=== PATIENT | male | born 1955 | race Caucasian/White ===

== ENCOUNTER 2017-02-07 20:54 | Emergency (ER) | payer MEDICARE, OTHER ==
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
[2017-02-07 21:32] LABS: Hematocrit 38.9 % (42.0-52.0); Hemoglobin 13.5 gm/dL (13.5-18.0); Mean Cell Volume 98.5 fl (78-100); Mean Corpuscular Hemoglobin 34.2 pg (27-31); Mean Corpuscular Hgb Conc 34.7 g/dl (32-36); Neutrophil # 5.1 K/mm3 (1.3-6.0); Neutrophil % 71.2 % (42-75.0); Platelet Count 63 K/mm3 (150-450); Red Blood Count 3.95 M/mm3 (4.7-6.0); Red Cell Distribution Width 13.8 % (11.5-14.0); White Blood Count 7.2 K/mm3 (4.0-10.5)
[2017-02-07 21:46] LABS: Albumin * 2.5 gm/dl (3.4-5.0); Anion Gap 14.6 mmol/L (6.8-13.8); BUN/Creatinine Ratio 9.7 (9.0-21.6); Bilirubin, Total 5.4 mg/dL (0.0-1.1); Ca. Corrected For Albumin 8.9 mg/dL (8.4-10.2); Carbon Dioxide 20.7 mmol/L (24-32.6); Potassium 3.3 mmol/L (3.4-4.6); Total Protein 6.6 gm/dL (6.2-8.2)
[2017-02-07 21:48] VITALS: BP 137/74
[2017-02-07 22:31] LABS: Urine Bilirubin Negative (NEGATIVE); Urine Ketone Negative (NEGATIVE); Urine Nitrite Negative (NEGATIVE); Urine Protein Negative (NEGATIVE); Urine Specific Gravity 1.015 SP.GR. (1.005-1.030); Urine Urobilinogen Normal (NORMAL)
[2017-02-07 22:39] LABS: Urine Appearance Clear; Urine Blood 5 /ul (NEGATIVE); Urine Color Yellow; Urine RBC 0-5 /hpf (0-5); Urine WBC 0-5 /hpf (0-5)
[2017-02-07 22:40] LABS: Urine Bacteria 1+; Urine Hyaline Cast 0-5 /LPF
== END 2017-02-07 23:25 | disposition home or self-care (01) ==
LOC: ER 20:54
DX: T14.8 Other injury of unspecified body region (principal); W18.39XA Other fall on same level, initial encounter; Y93.89 Activity, other specified; Y92.007 Garden or yard of unspecified non-institutional (private) residence as the place of occurrence of the external cause
CPT/HCPCS: 36415; 70450; 73562; 80053; 81001; 85025; 99284; G0481

== ENCOUNTER 2017-06-05 09:39 | Emergency (ER) | payer MEDICARE ==
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
[2017-06-05] MEDS ORDERED: DIATRIZOATE MEGLUMINE, SODIUM 30 ML BTL PO ONE (11:12)
[2017-06-05] MEDS ORDERED: DIATRIZOATE MEGLUMINE, SODIUM 30 ML BTL ONE (11:24)
[2017-06-05 11:30] LABS: Hematocrit 33.6 % (42.0-52.0); Hemoglobin 11.5 gm/dL (13.5-18.0); Mean Cell Volume 97.7 fl (78-100); Mean Corpuscular Hemoglobin 33.4 pg (27-31); Mean Corpuscular Hgb Conc 34.2 g/dl (32-36); Mean Platelet Volume 11.3 fl (6.0-9.5); Neutrophil # 5.3 K/mm3 (1.3-6.0); Neutrophil % 66.4 % (42-75.0); Platelet Count 83 K/mm3 (150-450); Red Blood Count 3.44 M/mm3 (4.7-6.0); Red Cell Distribution Width 16.7 % (11.5-14.0)
[2017-06-05 11:45] LABS: Albumin * 2.4 gm/dl (3.4-5.0); Anion Gap 12.9 mmol/L (6.8-13.8); BUN/Creatinine Ratio 10.3 (9.0-21.6); Bilirubin, Total 6.2 mg/dL (0.0-1.1); Ca. Corrected For Albumin 9.5 mg/dL (8.4-10.2); Calcium * 8.5 mg/dL (7.9-10.9); Carbon Dioxide 26.8 mmol/L (24-32.6); Potassium 3.7 mmol/L (3.4-4.6); Total Protein 6.9 gm/dL (6.2-8.2)
[2017-06-05] MEDS ORDERED: NORMAL SALINE 1,000 ML IV ONE (12:26)
[2017-06-05 12:41] LABS: Prothrombin Time (Patient) 12.7 Seconds (9.0-11.0)
[2017-06-05 12:42] LABS: INR 1.27 INR (0.90-1.10)
[2017-06-05] MEDS ORDERED: LACTULOSE 10 G/15 ML BTL PO ONE (14:15)
[2017-06-05 15:13] LABS: Urine Bilirubin 1 mg/dl (NEGATIVE); Urine Ketone 5 mg/dL (NEGATIVE); Urine Nitrite Negative (NEGATIVE); Urine Protein Negative (NEGATIVE); Urine Urobilinogen >=8.0 EU/dl (NORMAL); Urine pH 6.5 pH (5.0-7.0)
[2017-06-05 15:26] LABS: Urine Appearance Clear; Urine Bacteria None Seen; Urine Blood 5 /ul (NEGATIVE); Urine Color Amber; Urine RBC None Seen /hpf (0-5); Urine WBC None Seen /hpf (0-5)
[2017-06-05 18:15] VITALS: BP 158/91
== END 2017-06-05 16:10 | disposition short-term general hospital (02) ==
LOC: ER 09:39
DX: S22.42XA Multiple fractures of ribs, left side, initial encounter for closed fracture (principal); R18.8 Other ascites; E86.0 Dehydration; R60.1 Generalized edema; G04.90 Encephalitis and encephalomyelitis, unspecified; K74.60 Unspecified cirrhosis of liver; K72.00 Acute and subacute hepatic failure without coma; W01.0XXA Fall on same level from slipping, tripping and stumbling without subsequent striking against object, initial encounter; Y92.000 Kitchen of unspecified non-institutional (private) residence as the place of occurrence of the external cause; E11.9 Type 2 diabetes mellitus without complications

== ENCOUNTER 2017-12-22 20:06 | Observation (INO) ==
[2017-12-22] MEDS ORDERED: NORMAL SALINE 1,000 ML IV ONE (20:35)
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
[2017-12-22 20:43] LABS: Hematocrit 33.3 % (42.0-52.0); Mean Cell Volume 97.1 fl (78-100); Mean Corpuscular Hemoglobin 32.1 pg (27-31); Mean Platelet Volume 10.6 fl (6.0-9.5); Neutrophil # 2.4 K/mm3 (1.3-6.0); Neutrophil % 64.6 % (42-75.0); Platelet Count 45 K/mm3 (150-450); Red Blood Count 3.43 M/mm3 (4.7-6.0); Red Cell Distribution Width 16.4 % (11.5-14.0); White Blood Count 3.7 K/mm3 (4.0-10.5)
[2017-12-22 21:02] LABS: ALT 58 U/L (19-67); AST 101 U/L (0-48); Albumin * 2.1 gm/dl (3.4-5.0); Alkaline Phosphatase * 227 U/L (50-170); Anion Gap 16.4 mmol/L (6.8-13.8); BUN/Creatinine Ratio 14.8 (9.0-21.6); Bilirubin, Total 5.4 mg/dL (0.0-1.1); Blood Urea Nitrogen 19 mg/dL (6-23); CK Total * 168 U/L (0-259); Ca. Corrected For Albumin 8.4 mg/dL (8.4-10.2); Calcium * 7.2 mg/dL (7.9-10.9); Carbon Dioxide 18.5 mmol/L (24-32.6); Chloride 103 mmol/L (97-106); Glucose * 116 mg/dL (70-110); Potassium 3.9 mmol/L (3.4-4.6); Sodium 134 mmol/L (132-142); Total Protein 5.5 gm/dL (6.2-8.2)
[2017-12-22 21:03] LABS: Troponin I 0.066 ng/ml (0.00-0.10)
[2017-12-22 21:40] LABS: Urine Bilirubin Negative (NEGATIVE); Urine Blood 25 /ul (NEGATIVE); Urine Ketone Negative (NEGATIVE); Urine Nitrite Negative (NEGATIVE); Urine Protein 15 mg/dL (NEGATIVE); Urine Specific Gravity 1.025 SP.GR. (1.005-1.030); Urine Urobilinogen Normal (NORMAL)
[2017-12-22 21:52] LABS: Cocaine Ur Negative (NEGATIVE); Urine Barbiturate Negative (NEGATIVE); Urine Benzodiazepines Negative (NEGATIVE); Urine Opiates Negative (NEGATIVE); Urine PCP Negative (NEGATIVE); Urine THC Negative (NEGATIVE)
[2017-12-22 21:53] LABS: Urine Appearance Clear (CLEAR); Urine Bacteria TRACE; Urine Color Dark Yellow; Urine Hyaline Cast 0-5 /LPF; Urine WBC None Seen /hpf (0-5)
--- NOTE | 2017-12-22 22:43 | HP ---
Chief Complaint - Chief Complaint Date of Service: 12/22/17 Time of Service: 22:41 Chief Complaint: Shortness of breath, laceration and unsteady gait. History of Present Illness: 62 years old male was out most of the day fishing from his boat. He drank only on Gatorade while out on the boat. The temperature was 91 degrees. When he stood up to get off the boat he felt very tired/weak, dizzy and cramping. He lost his balance and fell causing a laceration to the left leg. Associated s/s shortness of breath, nausea, lightheadedness and sweating. he denies chest pain , palpitation or vomiting. PMH significant for of ascites , liver cirrhosis secondary to nonalcoholic steatohepatitis, SBP, hypertension, neuropathy, diabetes II and sleep apnea. In ER pt was noted to be in Afib rate control, EKG to be obtained to confirm converted. Chest x-ray demonstrates fluid within the right fissure. Right lower lobe dizziness may represent effusion or infiltrate.Plan of care discussed with pt he verbalized understanding and agrees. - Patient's Past Medical History Patient History - Medical: Diabetes Type 2, GERD, Liver Disease, Obesity Patient History - Cardiac/Respiratory: Hypertension, Hyperlipidemia, Peripheral Vascular Disease, CPAP/BiPAP Home Use, Sleep Apnea Patient History - Cancer: No Hx of Cancer Patient History - Surgical Procedures: No surgical history Patient History - Other: None - Family History Father Family History - Medical: Family History - Cardiac/Respiratory: No pertinent hx Family History - Cancer: No pertinent family hx Mother Family History - Medical: , No pertinent hx Family History - Cardiac/Respiratory: No pertinent hx Family History - Cancer: No pertinent family hx - Social History Living Situations: home Abuse History: No History of abuse Psych History: No pertinent hx Smoking Status: Never smoker Alcohol Use: none Drug Use: none - Immunizations Immunizations Up to Date: Yes Hx Pneumococcal Vaccination: Yes History of Influenza Vaccine: Yes Review Of Systems (GEN) - Review of Systems Generalized/Overall Review: Present: Weakness EENTM: Present: No Symptoms Reported Respiratory: Present: Shortness of Breath Cardiac: Present: No Symptoms Reported Abdominal: Present: No Symptoms Reported Genitourinary: Present: No Symptoms Reported Musculoskeletal: Present: No Symptoms Reported Neurological: Present: Headache, Weakness Skin: Present: Bruising Endocrine: Present: No Symptoms Reported Immunizations: IMMUNIZATION HX Immunizations Up to Date Yes History of Influenza Vaccine Yes Hx Pneumococcal Vaccination Yes Allergies/Adverse Reactions: Allergies Allergy/AdvReac Type Severity Reaction Status Date / Time No Known Allergies Allergy Verified 08/27/17 08:16 Home Medications: HOME MEDICATIONS Atorvastatin Calcium [Lipitor] 40 mg PO HS 06/05/17 [Last Taken Unknown] Omeprazole 20 mg PO DAILY 06/05/17 [Last Taken Unknown] Ciprofloxacin HCl 500 mg PO DAILY 08/26/17 [Last Taken Unknown] Furosemide [Lasix] 80 mg PO DAILY 08/26/17 [Last Taken Unknown] Spironolactone 100 mg PO DAILY 08/26/17 [Last Taken Unknown] Lisinopril 20 mg PO DAILY #30 tablet 08/30/17 [Last Taken Unknown] Lactulose [Enulose] 30 ml PO TID 12/22/17 [Last Taken Unknown] Exam - Exam Vital Signs: Vital Signs - Last Taken Temp 37.5 C 12/22/17 22:25 Pulse 95 12/22/17 22:25 Resp 17 12/22/17 22:25 BP 116/79 12/22/17 22:25 Pulse Ox 100 12/22/17 22:25 Constitutional: Present: Alert, Oriented x3, Cooperative, No distress, Middle aged, Morbidly obese ENT Exam: Present: hearing grossly normal Eye Exam: bilateral eye: normal inspection Neck: Present: non-tender, full range of motion Back Exam: Present: normal inspection, no CVA tenderness Breasts: Present: Exam deferred Respiratory: Present: chest non-tender, lungs clear, normal breath sounds, no respiratory distress, no accessory muscle use Cardiovascular/Chest: Present: normal peripheral pulses, no chest tenderness, irregularly irregular, edema Peripheral Pulses: dorsalis-pedis (R): 1+, dorsalis-pedis (L): 1+ Abdomen: Present: Normal bowel sounds, nontender, no rebound tenderness, obese, negative Jacobs sign /Rectal: Present: Exam deferred Extremity: Present: normal range of motion, non-tender, normal inspection, no calf tenderness, lower extremity edema, swelling Skin Exam: Present: normal color, warm/dry, no cyanosis Neurologic: Present: normal mood/affect, oriented x 3 Appearance: Present: appropriate appearance Eye contact: Present: cooperative, good eye contact Thoughts: Present: normal thought pattern Diagnostic Studies: Laboratory Results WBC 3.7 K/mm3 (4.0-10.5) L 12/22/17 20:40 RBC 3.43 M/mm3 (4.7-6.0) L 12/22/17 20:40 Hgb 11.0 gm/dL (13.5-18.0) L 12/22/17 20:40 Hct 33.3 % (42.0-52.0) L 12/22/17 20:40 MCV 97.1 fl (78-100) 12/22/17 20:40 MCH 32.1 pg (27-31) H 12/22/17 20:40 MCHC 33.0 g/dl (32-36) 12/22/17 20:40 RDW 16.4 % (11.5-14.0) H 12/22/17 20:40 Plt Count 45 K/mm3 (150-450) L 12/22/17 20:40 MPV 10.6 fl (6.0-9.5) H 12/22/17 20:40 Immature Gran % (Auto) 1.90 % (0.001-0.429) H 12/22/17 20:40 Immature Gran # (Auto) 0.07 K/mm3 (0.000-0.0310) H 12/22/17 20:40 Neutrophils % 64.6 % (42-75.0) 12/22/17 20:40 Lymphocytes % 9.3 % (20-51) L 12/22/17 20:40 Monocytes % 23.2 % (0.0-9) H 12/22/17 20:40 Eosinophils % 0.5 % (0.0-3.0) 12/22/17 20:40 Basophils % 0.5 % (0.0-1.0) 12/22/17 20:40 Nucleated RBC % 0.0 k/mm3 (0-1) 12/22/17 20:40 Neutrophils # 2.4 K/mm3 (1.3-6.0) 12/22/17 20:40 Lymphocytes # 0.34 k/mm3 (1.5-3.5) L 12/22/17 20:40 Monocytes # 0.9 k/mm3 (0.0-1.0) 12/22/17 20:40 Eosinophils # 0.0 k/mm3 (0.0-0.7) 12/22/17 20:40 Absolute Basophils 0.0 k/mm3 (0.0-0.1) 12/22/17 20:40 Sodium 134 mmol/L (132-142) 12/22/17 20:40 Plasma Sodium 134 mmol/L (130-142) 12/22/17 20:40 Potassium 3.9 mmol/L (3.4-4.6) 12/22/17 20:40 Chloride 103 mmol/L (97-106) 12/22/17 20:40 Carbon Dioxide 18.5 mmol/L (24-32.6) L 12/22/17 20:40 Anion Gap 16.4 mmol/L (6.8-13.8) H 12/22/17 20:40 BUN 19 mg/dL (6-23) 12/22/17 20:40 Creatinine 1.28 mg/dL (0.4-1.4) 12/22/17 20:40 Est GFR (Non-Af Amer) 60 mL/min (60-130) 12/22/17 20:40 BUN/Creatinine Ratio 14.8 (9.0-21.6) 12/22/17 20:40 Random Glucose 116 mg/dL (70-110) H 12/22/17 20:40 Lactic Acid, Venous 4.0 mmol/L (0.4-1.9) H* 12/22/17 20:40 Calcium 7.2 mg/dL (7.9-10.9) L 12/22/17 20:40 Calcium Adj for Albumin 8.4 mg/dL (8.4-10.2) 12/22/17 20:40 Total Bilirubin 5.4 mg/dL (0.0-1.1) H 12/22/17 20:40 AST 101 U/L (0-48) H 12/22/17 20:40 ALT 58 U/L (19-67) 12/22/17 20:40 Alkaline Phosphatase 227 U/L (50-170) H 12/22/17 20:40 Ammonia 29.0 mcmol/L (11-35) 12/22/17 20:40 Creatine Kinase 168 U/L (0-259) 12/22/17 20:40 Troponin I 0.066 ng/ml (0.00-0.10) 12/22/17 20:40 Total Protein 5.5 gm/dL (6.2-8.2) L 12/22/17 20:40 Albumin 2.1 gm/dl (3.4-5.0) L 12/22/17 20:40 Urine Color Dark yellow 12/22/17 21:35 Urine Appearance Clear (CLEAR) 12/22/17 21:35 Urine pH 6.0 pH (5.0-7.0) 12/22/17 21:35 Ur Specific [place] 1.025 SP.GR. (1.005-1.030) 12/22/17 21:35 Urine Protein 15 mg/dL (NEGATIVE) H 12/22/17 21:35 Urine Glucose (UA) Negative mg/dL (NEGATIVE) 12/22/17 21:35 Urine Ketones Negative mg/dL (NEGATIVE) 12/22/17 21:35 Urine Blood 25 /ul (NEGATIVE) H 12/22/17 21:35 Urine Nitrate Negative (NEGATIVE) 12/22/17 21:35 Urine Bilirubin Negative mg/dl (NEGATIVE) 12/22/17 21:35 Prot Sulfosalicylic Acd Negative mg/dL (0) 12/22/17 21:35 Urine Urobilinogen Normal EU/dl (NORMAL) 12/22/17 21:35 Ur Leukocyte Esterase Negative /ul (NEGATIVE) 12/22/17 21:35 Urine RBC 5-10 /hpf (0-5) H 12/22/17 21:35 Urine WBC None seen /hpf (0-5) 12/22/17 21:35 Ur Epithelial Cells None seen /hpf (0-5) 12/22/17 21:35 Urine Bacteria Trace (NONE) 12/22/17 21:35 Hyaline Casts 0-5 /LPF (NONE) H 12/22/17 21:35 Urine Culture Comments No culture indicated 12/22/17 21:35 Urine Opiates Screen Negative (NEGATIVE) 12/22/17 21:35 Barbiturate Screen Negative (NEGATIVE) 12/22/17 21:35 Ur Phencyclidine Scrn Negative (NEGATIVE) 12/22/17 21:35 Urine Amphetamine Negative (NEGATIVE) 12/22/17 21:35 U Benzodiazepines Scrn Negative (NEGATIVE) 12/22/17 21:35 Urine Cocaine Screen Negative (NEGATIVE) 12/22/17 21:35 Urine Marijuana (THC) Negative (NEGATIVE) 12/22/17 21:35 Ethyl Alcohol Less than 3.0 mg/dL (0.0-10.0) 12/22/17 20:40 Chest x-ray demonstrates fluid within the right fissure. Right lower lobe dizziness may represent effusion or infiltrate. Favor effusion in this patient with severe cirrhosis Assessment/Plan - Assessment/Plan (1) Heat exhaustion Assessment: On adm temp 38.1, actic 4--->2.0 Pt was out most of the day in 91 degree temp He drank only one bottle Gatorade Monitor CMP and encourage oral hydration Keep pt cool Problem: Acute (2) Liver failure Problem: Chronic (3) Cirrhosis of liver Problem: Chronic (4) Hypertension Assessment: stable Problem: Chronic Qualifiers: Hypertension type: essential hypertension Qualified Code(s): I10 - Essential (primary) hypertension (5) Diabetes Assessment: Accu-check and Low dose Sliding scale insulin consistent carb diet Problem: Acute Qualifiers: Diabetes mellitus type: type 2 (6) Sleep apnea Assessment: Continue with cpap at home settings Problem: Chronic (7) Afib Assessment: seen on tele, HR control Will get EKG to confirm pt had converted to NSR. Problem: Acute
[2017-12-22] MEDS: NORMAL SALINE 1,000 ML IV PRN (23:32)
[2017-12-23 04:55] LABS: Albumin * 1.8 gm/dl (3.4-5.0); Anion Gap 11.9 mmol/L (6.8-13.8); BUN/Creatinine Ratio 13.6 (9.0-21.6); Bilirubin, Total 4.6 mg/dL (0.0-1.1); Ca. Corrected For Albumin 8.8 mg/dL (8.4-10.2); Calcium * 7.4 mg/dL (7.9-10.9); Carbon Dioxide 20.8 mmol/L (24-32.6); Potassium 3.7 mmol/L (3.4-4.6); Total Protein 5.2 gm/dL (6.2-8.2)
--- NOTE | 2017-12-23 06:44 | PN ---
Subjective - Date and Time Seen Date: 12/23/17 Time: 06:33 Subjective Narrative: patient seen in bed no acute distress, he report pelvic pain is intermittent with movement but he no longer have the spams or sharp leg cramps. Objective - Review of Systems Generalized/Overall Review: Reports: No Symptoms Reported EENTM: Reports: No Symptoms Reported Respiratory: Reports: No Symptoms Reported Cardiac: Reports: No Symptoms Reported Abdominal: Reports: No Symptoms Reported Genitourinary Symptoms: Reports: No Symptoms Reported Musculoskeletal Complaints: Reports: Joint Pain Neurological: Reports: Weakness Skin: Reports: Bruising - Vitals Vitals: Last Vital Signs Temp 37.2 C 12/23/17 05:00 Pulse 78 12/23/17 05:54 Resp 18 12/23/17 05:54 BP 108/89 12/23/17 05:00 Pulse Ox 100 12/23/17 05:54 - Abnormal Lab Findings Abnormal Lab Findings: Abnormal Lab Results 12/22/17 12/23/17 12/23/17 Range/Units 23:20 04:37 04:37 Chloride 108 H (97-106) mmol/L Carbon Dioxide 20.8 L (24-32.6) mmol/L Lactic Acid, Venous 2.1 H* (0.4-1.9) mmol/L Calcium 7.4 L (7.9-10.9) mg/dL Total Bilirubin 4.6 H (0.0-1.1) mg/dL AST 93 H (0-48) U/L Alkaline Phosphatase 206 H (50-170) U/L Ammonia 59.0 H (11-35) mcmol/L Total Protein 5.2 L (6.2-8.2) gm/dL Albumin 1.8 L (3.4-5.0) gm/dl - Exam Constitutional: Present: Alert, Oriented x3, Cooperative, No distress ENT Exam: Present: hearing grossly normal Neck: Present: non-tender, full range of motion, supple, normal inspection Respiratory: Present: chest non-tender, lungs clear, normal breath sounds, no respiratory distress Cardiovascular/Chest: Present: normal peripheral pulses, no chest tenderness, no gallop Abdomen: Present: Normal bowel sounds, soft, nontender, nondistended, no rebound tenderness /Rectal: Present: Exam deferred Extremity: Present: non-tender, normal inspection, no pedal edema, no calf tenderness, other - limited range of motion secondary to right pelvic fracture Assessment/Plan Plan Narrative: 1. Heat exhaustion- resolved On adm temp 38.1, Lactic 4--->2.0--->1.7 Pt was out most of the day in 91 degree temp He drank only one bottle Gatorade Monitor CMP and encourage oral hydration Keep pt cool Problem: Acute (2) Liver failure Chronic (3) Cirrhosis of liver Chronic 4. Hypertension May resume home medications when, na+ better improve 5.Diabetes Accu-check and Low dose Sliding scale insulin consistent carb diet (6) Sleep apnea Continue with cpap at home settings (7) Afib seen on tele, HR control Repeated EKG confirmed converted to NSR. 8. Thrombocytopenia On adm Plt 45 which is around the pt baseline - Problems/Diagnosis (1) Heat exhaustion Problem: Acute (2) Liver failure Problem: Chronic (3) Cirrhosis of liver Problem: Chronic (4) Hypertension Problem: Chronic Qualifiers: Hypertension type: essential hypertension Qualified Code(s): I10 - Essential (primary) hypertension (5) Diabetes Problem: Acute Qualifiers: Diabetes mellitus type: type 2 (6) Sleep apnea Problem: Chronic (7) Afib Problem: Acute (8) Thrombocytopenia Problem: Chronic
[2017-12-23] MEDS ORDERED: PANTOPRAZOLE SODIUM 20 MG TABLET.DR PO SCH (07:00)
[2017-12-23] MEDS: NORMAL SALINE 1,000 ML IV PRN (07:41)
[2017-12-23] MEDS ORDERED: LISINOPRIL 20 MG TABLET PO SCH (09:00)
[2017-12-23] MEDS ORDERED: SPIRONOLACTONE 100 MG TABLET PO SCH (09:00)
[2017-12-23] MEDS ORDERED: FUROSEMIDE 80 MG TABLET PO SCH (09:00)
[2017-12-23] MEDS: LACTULOSE 10 G/15 ML BTL PO SCH ×2 (09:18→13:52)
[2017-12-23] MEDS ORDERED: POTASSIUM CHLORIDE 20 MEQ TABLET.SA PO ONE (10:00)
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
[2017-12-23 14:54] VITALS: BP 109/62
[2017-12-23] MEDS ORDERED: ROSUVASTATIN CALCIUM 20 MG TABLET PO SCH (21:00)
[2017-12-23] MEDS ORDERED: ATORVASTATIN CALCIUM 40 MG TABLET PO SCH (21:00)
== END 2017-12-23 15:20 | disposition home or self-care (01) ==
LOC: ER 20:06 → MS 21:45
PROVIDERS: ADMIT Nurse Practitioner; ATTEND Internal Medicine
DX: K72.10 Chronic hepatic failure without coma; E11.9 Type 2 diabetes mellitus without complications; V94.0XXA Hitting object or bottom of body of water due to fall from watercraft, initial encounter; G47.33 Obstructive sleep apnea (adult) (pediatric); S81.811A Laceration without foreign body, right lower leg, initial encounter; T67.5XXA Heat exhaustion, unspecified, initial encounter; I10 Essential (primary) hypertension; I48.91 Unspecified atrial fibrillation; I73.9 Peripheral vascular disease, unspecified; D69.6 Thrombocytopenia, unspecified; K74.69 Other cirrhosis of liver; K76.0 Fatty (change of) liver, not elsewhere classified; E66.01 Morbid (severe) obesity due to excess calories; Z68.41 Body mass index [BMI] 40.0-44.9, adult
CPT/HCPCS: 12002; 36415; 71010; 71045; 80053; 80307; 80320; 81001; 82140; 82550; 83605; 84484; 85025; 87040; 93005; 94660; 94760; 96360; 96361; 99285; G0378; G0479; G0481

== ENCOUNTER 2018-01-01 08:18 | Inpatient (IN) ==
[2018-01-01] MEDS ORDERED: oxyCODONE HCL 5 MG TABLET PO ONE (09:04)
[2018-01-01] MEDS ORDERED: oxyCODONE HCL 5 MG TABLET ONE ×2 (09:19→09:42)
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
[2018-01-01 10:06] LABS: Hemoglobin 11.2 gm/dL (13.5-18.0); Mean Corpuscular Hemoglobin 31.6 pg (27-31); Mean Corpuscular Hgb Conc 32.9 g/dl (32-36); Mean Platelet Volume 10.8 fl (8-11.3); Platelet Count 56 K/mm3 (150-450); Red Blood Count 3.54 M/mm3 (4.7-6.0)
[2018-01-01 10:07] LABS: Total Cells Counted 100
[2018-01-01 10:29] LABS: Albumin * 2.1 gm/dl (3.4-5.0); Anion Gap 12.8 mmol/L (6.8-13.8); BUN/Creatinine Ratio 12.3 (9.0-21.6); Ca. Corrected For Albumin 9.3 mg/dL (8.4-10.2); Calcium * 8.1 mg/dL (7.9-10.9); Carbon Dioxide 22.8 mmol/L (24-32.6); Potassium 4.6 mmol/L (3.4-4.6); Total Protein 5.6 gm/dL (6.2-8.2)
[2018-01-01 10:30] LABS: Troponin I 0.327 ng/ml (0.00-0.10)
[2018-01-01 10:42] LABS: Band 4 % (0-2.0); Immature Granulocyte 3 (0-1); Lymphocyte 1 % (20-51); Neutrophil 92 % (42-75)
[2018-01-01 10:47] LABS: Platelet Estimate Decreased (NORMAL); Toxic Granulation 1+
[2018-01-01] MEDS: NORMAL SALINE 1,000 ML IV PRN ×2 (11:03→17:13)
[2018-01-01 11:48] LABS: Urine Bilirubin 1 mg/dl (NEGATIVE); Urine Ketone Negative (NEGATIVE); Urine Protein 15 mg/dL (NEGATIVE); Urine Specific Gravity >=1.030 SP.GR. (1.005-1.030); Urine Urobilinogen Normal (NORMAL)
[2018-01-01] MEDS ORDERED: AZITHROMYCIN 500 MG in DEXTROSE 5 % IN WATER 250 ML IV ONE ×2 (11:51)
[2018-01-01 11:52] LABS: Urine Appearance Slightly Cloudy (CLEAR); Urine Bacteria 2+; Urine Blood 10 /ul (NEGATIVE); Urine Color Dark Yellow; Urine Fine Granular Cast 0-5 /LPF; Urine Nitrite Positive (NEGATIVE); Urine RBC 0-5 /hpf (0-5); Urine WBC 0-5 /hpf (0-5)
--- NOTE | 2018-01-01 12:56 | HP ---
Chief Complaint - Chief Complaint Date of Service: 01/01/18 Time of Service: 12:56 Chief Complaint: fall History of Present Illness: Douglas Camilo, is a 62-year-old white male, with previous medical history of hypertension, hyperlipidemia, liver cirrhosis with ascites and portal hypertension, who was admitted on 01/01/2018 for a fall. On the night before admission, the patient stood up from his bed and felt weakness from his knees down to his legs. He fell down on his buttocks and he was not able to stand up. He laidd on the floor until he was able to crawl and get to the telephone this morning. He called his daughter who called EMS. In transit , they started him on some oxygenation because he was complaining of shortness of breath. In the emergency room workup included x-ray of his lower back which showed no evidence of compression fracture. His chest x-ray showed right atelectasis with pleural effusion but cannot rule out pneumonia. His white blood cell count was elevated and the CK was elevated in the 3900. His creatinine was up to 1.7 from 1.1 week ago. He was then started on IV antibiotics for possible pneumonia and started on IV fluids for his rhabdomyolysis. His BNP was elevated at 1490 and his troponin was slightly elevated at 0.3. Her EKG showed no ST-T wave changes but did show some ectopic atrial rhythm. - Patient's Past Medical History Patient History - Medical: Diabetes Type 2, GERD, Liver Disease, Obesity Patient History - Cardiac/Respiratory: Hypertension, Hyperlipidemia, Peripheral Vascular Disease, CPAP/BiPAP Home Use, Sleep Apnea Patient History - Cancer: No Hx of Cancer Patient History - Surgical Procedures: No surgical history Patient History - Other: None - Family History Father Family History - Medical: Family History - Cardiac/Respiratory: No pertinent hx Family History - Cancer: No pertinent family hx Mother Family History - Medical: , No pertinent hx Family History - Cardiac/Respiratory: No pertinent hx Family History - Cancer: No pertinent family hx - Social History Living Situations: alone Abuse History: No History of abuse Psych History: No pertinent hx Smoking Status: Former smoker Have you smoked in the past 12 months: No Do you dip or chew tobacco: Yes Alcohol Use: sober - non since 2014 Drug Use: none - Immunizations Immunizations Up to Date: Yes Hx Pneumococcal Vaccination: Yes History of Influenza Vaccine: Yes Review Of Systems (GEN) - Review of Systems Generalized/Overall Review: Present: Weakness Respiratory: Present: Shortness of Breath. Absent: Cough Cardiac: Present: Edema. Absent: Chest Pain, Palpitations Abdominal: Absent: Nausea, Vomiting Genitourinary: Absent: Urgency, Frequency Allergies/Adverse Reactions: Allergies Allergy/AdvReac Type Severity Reaction Status Date / Time No Known Allergies Allergy Verified 01/01/18 08:27 Home Medications: HOME MEDICATIONS Furosemide [Lasix] 80 mg PO DAILY 08/26/17 [Last Taken Unknown] Spironolactone 100 mg PO DAILY 08/26/17 [Last Taken Unknown] Lactulose [Enulose] 30 ml PO TID 12/22/17 [Last Taken Unknown] Atorvastatin Calcium [Lipitor] 40 mg PO DAILY #0.1 tablet 12/23/17 [Last Taken Unknown] Lisinopril 20 mg PO HS #0.1 tablet 12/23/17 [Last Taken Unknown] Omeprazole 20 mg PO DAILY #0.1 tablet. 12/23/17 [Last Taken Unknown] Ciprofloxacin HCl [Cipro] 500 mg PO DAILY 01/01/18 [Last Taken Unknown] Rifaximin [Xifaxan] 550 mg PO BID 01/01/18 [Last Taken Unknown] Zinc 50 mg PO DAILY 01/01/18 [Last Taken Unknown] Exam - Exam Vital Signs: Vital Signs - Last Taken Temp 36.8 C 01/01/18 12:15 Pulse 95 01/01/18 12:15 Resp 25 H 01/01/18 12:15 BP 87/39 01/01/18 12:15 Pulse Ox 100 01/01/18 12:15 Constitutional: Present: Alert, Oriented x3, Cooperative ENT Exam: Present: hearing grossly normal Eye Exam: bilateral eye: normal inspection, PERRL, EOMI, scleral icterus Neck: Present: supple Respiratory: Present: decreased breath sounds, No rales, No wheezing Cardiovascular/Chest: Present: no JVD, no murmur, irregularly irregular Abdomen: Present: Normal bowel sounds, soft, nontender, distended Extremity: Present: leg pain Diagnostic Studies: Laboratory Results WBC 25.0 K/mm3 (4.0-10.5) H 01/01/18 10:03 RBC 3.54 M/mm3 (4.7-6.0) L 01/01/18 10:03 Hgb 11.2 gm/dL (13.5-18.0) L 01/01/18 10:03 Hct 34.0 % (42.0-52.0) L 01/01/18 10:03 MCV 96.0 fl (78-100) 01/01/18 10:03 MCH 31.6 pg (27-31) H 01/01/18 10:03 MCHC 32.9 g/dl (32-36) 01/01/18 10:03 RDW 17.0 % (11.5-14.0) H 01/01/18 10:03 Plt Count 56 K/mm3 (150-450) L 01/01/18 10:03 MPV 10.8 fl (8-11.3) 01/01/18 10:03 Neutrophils % (Manual) 92 % (42-75) H 01/01/18 10:03 Band Neuts % (Manual) 4 % (0-2.0) H 01/01/18 10:03 Lymphocytes % (Manual) 1 % (20-51) L 01/01/18 10:03 Immature Granulocytes 3 (0-1) H 01/01/18 10:03 Neutrophils # (Manual) 23.0 K/mm3 (1.3-6.0) H 01/01/18 10:03 Lymphocytes # (Manual) 0.3 k/mm3 (1.5-3.5) L 01/01/18 10:03 Toxic Granulation 1+ 01/01/18 10:03 Toxic Vacuolation 1+ 01/01/18 10:03 Platelet Estimate Decreased (NORMAL) L 01/01/18 10:03 pCO2 26.1 mmHg (35.0-48.0) L 01/01/18 11:22 pO2 71.0 mmHg (83.0-108.0) L 01/01/18 11:22 HCO3 18.5 mmol/L (21.0-28.0) L 01/01/18 11:22 Total CO2 19.3 mmol/L (19.0-24.0) 01/01/18 11:22 Base Excess -3.9 mmol/L (-2.0-3.0) L 01/01/18 11:22 ABG pH 7.47 (7.35-7.45) H 01/01/18 11:22 ABG O2 Sat (Measured) 95.5 % (94.0-98.0) 01/01/18 11:22 Sodium 137 mmol/L (132-142) 01/01/18 10:03 Plasma Sodium 137 mmol/L (130-142) 01/01/18 10:03 Potassium 4.6 mmol/L (3.4-4.6) D 01/01/18 10:03 Chloride 106 mmol/L (97-106) 01/01/18 10:03 Carbon Dioxide 22.8 mmol/L (24-32.6) L 01/01/18 10:03 Anion Gap 12.8 mmol/L (6.8-13.8) 01/01/18 10:03 BUN 22 mg/dL (6-23) D 01/01/18 10:03 Creatinine 1.79 mg/dL (0.4-1.4) H D 01/01/18 10:03 Est GFR (Non-Af Amer) 41 mL/min (60-130) L D 01/01/18 10:03 BUN/Creatinine Ratio 12.3 (9.0-21.6) 01/01/18 10:03 Random Glucose 103 mg/dL (70-110) 01/01/18 10:03 Lactic Acid, Venous 4.6 mmol/L (0.4-1.9) H* 01/01/18 10:00 Calcium 8.1 mg/dL (7.9-10.9) 01/01/18 10:03 Calcium Adj for Albumin 9.3 mg/dL (8.4-10.2) 01/01/18 10:03 Total Bilirubin 6.0 mg/dL (0.0-1.1) H 01/01/18 10:03 AST 189 U/L (0-48) H 01/01/18 10:03 ALT 64 U/L (19-67) 01/01/18 10:03 Alkaline Phosphatase 209 U/L (50-170) H 01/01/18 10:03 Ammonia 26.0 mcmol/L (11-35) 01/01/18 10:03 Creatine Kinase 3762 U/L (0-259) H 01/01/18 10:03 Troponin I 0.327 ng/ml (0.00-0.10) H* 01/01/18 10:03 B-Natriuretic Peptide 1490 pg/mL (5-175) H 01/01/18 10:03 Total Protein 5.6 gm/dL (6.2-8.2) L 01/01/18 10:03 Albumin 2.1 gm/dl (3.4-5.0) L 01/01/18 10:03 Urine Color Dark yellow 01/01/18 11:22 Urine Appearance Slightly cloudy (CLEAR) 01/01/18 11:22 Urine pH 5.0 pH (5.0-7.0) 01/01/18 11:22 Ur Specific Lambert >=1.030 SP.GR. (1.005-1.030) 01/01/18 11:22 Urine Protein 15 mg/dL (NEGATIVE) H 01/01/18 11:22 Urine Glucose (UA) 100 mg/dL (NEGATIVE) H 01/01/18 11:22 Urine Ketones Negative mg/dL (NEGATIVE) 01/01/18 11:22 Urine Blood 10 /ul (NEGATIVE) H 01/01/18 11:22 Urine Nitrate Positive (NEGATIVE) H 01/01/18 11:22 Urine Bilirubin 1 mg/dl (NEGATIVE) H 01/01/18 11:22 Urine Ictotest Negative (NEGATIVE) 01/01/18 11:22 Prot Sulfosalicylic Acd 1+ mg/dL (0) 01/01/18 11:22 Urine Urobilinogen Normal EU/dl (NORMAL) 01/01/18 11:22 Ur Leukocyte Esterase Negative /ul (NEGATIVE) 01/01/18 11:22 Urine RBC 0-5 /hpf (0-5) 01/01/18 11:22 Urine WBC 0-5 /hpf (0-5) 01/01/18 11:22 Ur Epithelial Cells Trace /hpf (0-5) 01/01/18 11:22 Urine Bacteria 2+ (NONE) H 01/01/18 11:22 Fine Granular Casts 0-5 /LPF (NONE) H 01/01/18 11:22 Urine Culture Comments Culture to follow 01/01/18 11:22 Assessment/Plan - Assessment/Plan (1) Hypotension Assessment: sepsis vs 3rd spacing. Sepsis reassessment done. Problem: Acute (2) Congestive heart failure Assessment: elevated BNP. Echo showed normal EF, positive diastolic dysfunction. Problem: Acute Qualifiers: Heart failure type: unspecified Heart failure chronicity: acute Qualified Code(s): I50.9 - Heart failure, unspecified (3) Pneumonia Assessment: on IV Rocephin and Azithromycin. Problem: Acute Qualifiers: Pneumonia type: due to unspecified organism Laterality: right Lung location: lower lobe of lung Qualified Code(s): J18.1 - Lobar pneumonia, unspecified organism (4) Rhabdomyolysis Assessment: IVF was increased to 200 ml /hour due to low BP/sepsis and rhabdomyolysis. patient became more SOB. IVF decreased to 75 ml/hour. Lasix deferred due to BP 90/49. Problem: Acute Qualifiers: Rhabdomyolysis type: traumatic Encounter type: initial encounter Qualified Code(s): T79.6XXA - Traumatic ischemia of muscle, initial encounter (5) Cirrhosis of liver Assessment: with ascites and portal hypertension. will defer from doing abdominal tap as he does not have tense ascities and his abdomen is not tender and soft. his elevated WBC is likely due to chest findings-possible pneumonia. Problem: Chronic Qualifiers: Hepatic cirrhosis type: unspecified hepatic cirrhosis Ascites presence: unspecified Qualified Code(s): K74.60 - Unspecified cirrhosis of liver (6) JD on CPAP Problem: Chronic (7) Acute kidney injury Assessment: continue with IVF Problem: Acute (8) Elevated CK Assessment: will monitor. Echo- cannot rule regional wall motion abdnormality due to poor windows from SOB. Problem: Resolved
[2018-01-01] MEDS: ALBUTEROL SULFATE 2.5 MG/0.5 ML VIAL.NEB IH PRN ×2 (14:16→21:34)
[2018-01-01] MEDS ORDERED: NORMAL SALINE 200 ML IV ONE (16:47)
[2018-01-01] MEDS ORDERED: FUROSEMIDE 10 MG/ML VIAL IV ONE (16:48)
[2018-01-01 17:47] LABS: Anion Gap 13.2 mmol/L (6.8-13.8); BUN/Creatinine Ratio 13.8 (9.0-21.6); Calcium * 7.8 mg/dL (7.9-10.9); Carbon Dioxide 23.4 mmol/L (24-32.6); Estimated Creat Clear 41.3; Magnesium 1.5 mg/dL (1.2-2.8); Phosphorus 3.6 mg/dL (2.2-4.2); Potassium 4.6 mmol/L (3.4-4.6); Uric Acid 4.5 mg/dL (2.6-7.2)
[2018-01-01] MEDS: LACTULOSE 10 G/15 ML BTL PO SCH ×2 (18:26→18:30)
[2018-01-01] MEDS ORDERED: NON-FORMULARY 1 DOSE DOSE (Rifaximin [Xifaxan] 550 MG) PO SCH (21:00)
--- NOTE | 2018-01-01 23:39 | PN ---
Progess Note - Interim Date: 01/01/18 Time: 23:29 Narrative: 01/01/18 23:29 patient seen having audible wheezing, he denies shortness of breath. Lungs coarse on auscultation, will decreased IVF now and monitor out-pt. During shift he continue to be hypotensive,pt have had only 200ml urine out and legs appear to be more edemous. Monitor CMP and BNP in the morning, due to the rhabdo the kidney function is already been affected.He needs IVF for the rhabdo, but giving fluid he gets shortness of breath. Its a possibility cre may increased further affecting his kidneys with the decreased IVF. Will transfer [facility]. he potential could benefit from dialysis, concern for hepato-renal syndrome.
[2018-01-02] MEDS: NORMAL SALINE 1,000 ML IV PRN (02:46)
--- NOTE | 2018-01-02 03:19 | DS ---
Transfer Discharge Summary - Diagnosis(s)/Problems (1) Hepatorenal syndrome Problem: Acute (2) Congestive heart failure Problem: Acute (3) Hypotension Problem: Acute (4) Pneumonia Problem: Acute (5) Rhabdomyolysis Problem: Acute (6) Sepsis Problem: Acute (7) Cirrhosis of liver Problem: Chronic (8) Ascites Problem: Acute (9) Diabetes Problem: Chronic (10) Acute kidney injury Problem: Acute (11) Elevated CK Problem: Resolved (12) Diastolic CHF Problem: Acute - Course Description of Stay: Date of admission 01/01/2018 Date of transfer 01/02/2018 Transfer summary Mr. Soto a 62yrs old white male admitted to the hospital s/p fall while at home. He remains on the floor until the next day, where he crawled to the phone and called his daughter who inturn called EMS.PMH of hypertension, hyperlipidemia, liver cirrhosis with ascites and portal hypertension, While enroute to the hospital, he reported shortness of breath and was given oxygen.At [facility] ER x-ray of his lower back which showed no evidence of compression fracture. His chest x-ray showed right atelectasis with pleural effusion but cannot rule out pneumonia. His white blood cell count was elevated and the CK was elevated in the 3900. His creatinine was up to 1.7 from 1.1 week ago. He was then started on IV antibiotics for possible pneumonia and started on IV fluids for his rhabdomyolysis. His BNP was elevated at 1490 and his troponin was slightly elevated at 0.3. His EKG showed no ST-T wave changes but did show some ectopic atrial rhythm. During this adm he was given IVF for sepsis/hypotension and rhabdo. Pt continued to report shortness of breath and was getting more congested, IVF was decreased and while in the presence of been hypotensive Lasix was deferred. He had Only 200ml urine out put and was showing increased edema to extremities. Despite the IVF, cre continue to rise at 1.95. Spoke with Dr venegas and Dr last of the [place].We were concern for hepato-renal syndrome, the pt and daughter agreeable with transfer. Procedures Performed: none - Results and Findings Results and Findings: Laboratory Results - last 24 hr 01/01/18 01/01/18 01/01/18 13:14 16:15 16:15 Sodium 137 Plasma Sodium 138 Potassium 4.6 Chloride 105 Carbon Dioxide 23.4 L Anion Gap 13.2 BUN 27 H Creatinine 1.95 H Est GFR (Non-Af Amer) 37 L BUN/Creatinine Ratio 13.8 Random Glucose 148 H D Lactic Acid, Venous 3.3 H* Uric Acid 4.5 Calcium 7.8 L Phosphorus 3.6 Magnesium 1.5 Creatine Kinase 3212 H Troponin I 0.234 H* - Medications Medications: Active Medications Albuterol Sulfate (Albuterol Sulfate 2.5 Mg/0.5ml) 2.5 mg IH Q4H PRN PRN Reason: Shortness Of Breath Stop: 01/31/18 14:05 Last Admin: 01/01/18 21:34 Dose: 2.5 mg Sodium Chloride (Sodium Chloride 0.9%) 1,000 mls @ 80 mls/hr IV .[id number] PRN PRN Reason: HYDRATION Last Admin: 01/02/18 02:46 Dose: 80 mls/hr Lactulose (Enulose) 20 g PO TID HARINDER Stop: 01/31/18 13:01 Last Admin: 01/01/18 18:30 Dose: Not Given Non-Formulary Medication (Rifaximin [Xifaxan]) 550 mg PO BID HARINDER Stop: 01/31/18 21:01 Last Admin: 01/01/18 20:25 Dose: Not Given Discontinued Medications Furosemide (Lasix) 40 mg IV ONCE ONE Stop: 01/01/18 16:49 Last Admin: 01/01/18 17:11 Dose: 40 mg Ceftriaxone Sodium 1,000 mg/ (Dextrose/Water) 100 mls @ 200 mls/hr IV ONCE ONE PRN Reason: Protocol Stop: 01/01/18 11:41 Last Infusion: 01/01/18 11:57 Dose: Infused Azithromycin 500 mg/ Dextrose/ (Water) 250 mls @ 250 mls/hr IV ONCE ONE PRN Reason: Protocol Stop: 01/01/18 12:50 Last Infusion: 01/01/18 15:04 Dose: Infused Sodium Chloride (Sodium Chloride 0.9%) 200 mls @ 999 mls/hr IV .Q13M ONE Stop: 01/01/18 16:59 Last Infusion: 01/01/18 17:04 Dose: Infused Oxycodone HCl (Oxycodone) 5 mg PO ONCE ONE Stop: 01/01/18 09:05 Last Admin: 01/01/18 09:44 Dose: 5 mg - Disposition Disposition: Short Term Hospital Inpatient Condition: Stable Discharge Date: 01/02/18 Discharge Time: 02:50
[2018-01-02 03:36] VITALS: BP 98/42
[2018-01-02] MEDS ORDERED: ROSUVASTATIN CALCIUM 20 MG TABLET PO SCH (09:00)
[2018-01-02] MEDS ORDERED: CIPROFLOXACIN HCL 500 MG TABLET PO SCH (09:00)
--- NOTE | 2018-01-02 09:41 | ECHO ---
This report is available in the EMR
[2018-01-02] MEDS ORDERED: AZITHROMYCIN 500 MG in DEXTROSE 5 % IN WATER 250 ML IV SCH ×2 (11:52)
== END 2018-01-02 03:30 | disposition short-term general hospital (02) | DRG 871 ==
LOC: ER 08:18 → MS 11:28
PROVIDERS: ADMIT Internal Medicine; ATTEND Internal Medicine
DX: N17.9 Acute kidney failure, unspecified; R18.8 Other ascites; K76.7 Hepatorenal syndrome; T79.6XXA Traumatic ischemia of muscle, initial encounter; E78.5 Hyperlipidemia, unspecified; E11.9 Type 2 diabetes mellitus without complications; I50.31 Acute diastolic (congestive) heart failure; I10 Essential (primary) hypertension; W18.30XA Fall on same level, unspecified, initial encounter; K74.60 Unspecified cirrhosis of liver; J18.1 Lobar pneumonia, unspecified organism; A41.9 Sepsis, unspecified organism; R74.8 Abnormal levels of other serum enzymes
CPT/HCPCS: 36415; 36600; 71010; 71045; 72110; 80048; 80053; 81001; 82140; 82550; 82803; 83519; 83605; 83735; 83880; 84100; 84484; 84550; 85025; 87040; 87086; 93005; 93306; 94640; 94660; 94664

== ENCOUNTER 2018-04-20 11:07 | Inpatient (IN) ==
[2018-04-20] MEDS ORDERED: NORMAL SALINE 500 ML IV ONE (11:17)
--- NOTE | 2018-04-20 11:23 | ERNOTE ---
Back Pain ER HPI Presenting Symptoms: hx chronic back pain Time Seen by Provider: 04/20/18 11:12 Source: patient, family Exam Limitations: no limitations Immunizations: IMMUNIZATION HX Immunizations Up to Date Yes History of Influenza Vaccine Yes Hx Pneumococcal Vaccination Yes Allergies/Adverse Reactions: Allergies No Known Allergies Allergy (Verified 04/20/18 11:16) Home Medications: HOME MEDICATIONS Spironolactone 100 mg PO DAILY 08/26/17 [Last Taken Unknown] Lactulose [Enulose] 30 ml PO TID 12/22/17 [Last Taken Unknown] Rifaximin [Xifaxan] 550 mg PO BID 01/01/18 [Last Taken Unknown] Zinc 50 mg PO DAILY 01/01/18 [Last Taken Unknown] atorvastatin 40 mg tablet 40 mg PO DAILY #30 tab 03/12/18 [Last Taken Unknown] ciprofloxacin 500 mg tablet 500 mg PO DAILY #30 tab 03/12/18 [Last Taken Unknown ] omeprazole 20 mg capsule,delayed release 20 mg PO DAILY #30 cap 03/14/18 [Last Taken Unknown] lisinopril 20 mg tablet 20 mg PO DAILY #30 tab 04/07/18 [Last Taken Unknown] linagliptin 5 mg tablet 5 mg PO DAILY 04/08/18 [Last Taken Unknown] blood sugar diagnostic strips See Dose Instructions .ROUTE .MEDSUPPLY #100 ea [Last Taken Unknown] lancets See Dose Instructions .ROUTE .MEDSUPPLY #100 ea 04/09/18 [Last Taken Unknown] baclofen 10 mg tablet 10 mg PO TID 30 Days #90 tab 04/10/18 [Last Taken Unknown] duloxetine 30 mg capsule,delayed release 30 mg PO DAILY #90 cap 04/10/18 [Last Taken Unknown] Furosemide [Lasix] 40 mg PO DAILY 04/20/18 [Last Taken Unknown] Narrative: Patient has a long-standing history of bilateral lower extremity edema and falling. Family came over to visit him today and they're worried about him and called the ambulance so he can be evaluated and see if anything else needed to be done for him. Timing: Reports: constant Quality/Severity: Reports: mild Location of pain: Reports: lower back - this is chronic over Activities at Onset: Reports: none Recent Injury?: Reports: no Possible Precipitating Factor: Reports: none - generalized weakness Modifying Factors - (Improves): Reports: nothing Modifying Factors - (Worsens): Reports: nothing Prior Treament: Reports: recently seen, treated by physician Review of Systems - Review of Systems Constitutional: Present: See HPI EYE: Present: no symptoms reported ENT: Present: no symptoms reported Respiratory: Present: no symptoms reported Cardiology: Present: edema - chronic lower extremity edema Gastrointestinal/Abdominal: Present: no symptoms reported Genitourinary: Present: no symptoms reported Musculoskeletal: Present: no symptoms reported Skin: Present: no symptoms reported Neurological: Present: no symptoms reported Endocrine: Present: no symptoms reported Hematologic/Lymphatic: Present: no symptoms reported Psych: Present: no symptoms reported Medical History (Last Reviewed 04/08/18 @ 15:03 by Lc Crowell) Tremor (Chronic) Onset Date: ~05/30/17 Shoulder dislocation (Chronic) Onset Date: ~07/17/14 Osteoarthritis (Chronic) Onset Date: Unknown Neuropathy (Chronic) Onset Date: ~05/30/17 JD on CPAP (Chronic) Onset Date: Unknown Rib fracture (Chronic) Onset Date: Unknown Morbid obesity (Chronic) Onset Date: Unknown Hyperlipidemia (Chronic) Onset Date: Unknown Hypertension (Chronic) Onset Date: Unknown GERD (gastroesophageal reflux disease) (Chronic) Onset Date: ~01/24/15 Depression (Chronic) Onset Date: Unknown Colonic polyp (Chronic) Onset Date: Unknown Cirrhosis of liver (Chronic) Onset Date: Unknown Bacterial pneumonia (Chronic) Onset Date: Unknown Surgical History: Surgical History (Last Reviewed 04/08/18 @ 15:03 by Lc Crowell) H/O repair of rotator cuff (Resolved) Onset Date: ~10/25/14 Social History: Preferred Language Samoan Abuse History No History of abuse Psych History No pertinent hx Physical Exam - Physical Exam General Appearance: Present: wd/wn, alert, moderate distress Head Exam: Present: normal inspection, no evidence of injury Eye Exam: Normal inspection: bilateral, PERRL: bilateral Ears, Nose, Throat: Present: normal ENT inspection, H, normal pharynx Neck: Present: normal inspection, nontender Respiratory: Present: no respiratory distress, normal breath sounds, no accessory muscle use, chest nontender, lungs clear Cardiovascular/Chest: Present: regular rate, rhythm, no murmur, normal peripheral pulses Gastrointestinal/Abdominal: Present: normal bowel sounds, nontender, nondistended, soft, no organomegaly Rectal Exam: Present: deferred Back Exam: Present: normal inspection, normal range of motion Extremity Exam: Present: non-tender, normal range of motion, pedal edema Neurological Exam: Present: alert, oriented, normal mood/affect Skin Exam: Present: warm/dry, jaundice, other - early decubitus ulcer on the left buttock Lymphatic Exam: Present: no adenopathy ED Progress - Results and Orders Patient's Lab Results:: I have reviewed the patient's lab results. - Vital Signs Patient's Vital Signs:: I have reviewed the patient's vital signs. Vital Signs: Vital Signs 04/20/18 11:12 Temperature 36.8 C Pulse Rate 90 Respiratory Rate 24 H Blood Pressure 100/52 O2 Sat by Pulse Oximetry 100 - X-Ray X-Ray #1 X-Ray: pelvis Interpretation: Reviewed by me X-Ray #2 X-Ray: lumbosacral Interpretation: Reviewed by me X-Ray #3 X-Ray: chest Interpretation: Reviewed by me - Progress/Reassessment Chief Complaint: Back Pain Plan - Plan Plan: Patient appears to be nearing the place where were going to have to consider end -of-life planning. He is in liver failure, currently has lactic acidosis and was hypotensive and is evolving in decubitus ulcers now. I discussed the case with the family and they believe that he is a DNR and they're waiting to talk to the daughter who is currently out of state to verify that. Patient will be admitted to an observation bed and prison placement will be sought in the morning and possible hospice, although that will be determined at a later date likely. Departure Clinical Impression: Lactic acidosis Liver failure Qualifiers: Liver failure chronicity: subacute Hepatic coma status: without hepatic coma Qualified Code(s): K72.00 - Acute and subacute hepatic failure without coma Ascites Qualifiers: Ascites type: other type Qualified Code(s): R18.8 - Other ascites Decubitus ulcer Qualifiers: Pressure injury location: buttock Pressure injury stage: stage 1 Laterality: left Qualified Code(s): L89.321 - Pressure ulcer of left buttock, stage 1 - Departure Disposition: Still a patient Condition: Fair
[2018-04-20 11:35] LABS: Hematocrit 27.3 % (42.0-52.0); Hemoglobin 9.1 gm/dL (13.5-18.0); Mean Cell Volume 95.5 fl (78-100); Mean Corpuscular Hemoglobin 31.8 pg (27-31); Mean Corpuscular Hgb Conc 33.3 g/dl (32-36); Mean Platelet Volume 10.7 fl (8-11.3); Neutrophil # 13.6 K/mm3 (1.3-6.0); Red Blood Count 2.86 M/mm3 (4.7-6.0); Red Cell Distribution Width 17.2 % (11.5-14.0); White Blood Count 15.4 K/mm3 (4.0-10.5)
[2018-04-20 11:41] LABS: Platelet Count 51 K/mm3 (150-450)
[2018-04-20 11:43] LABS: Prothrombin Time (Patient) 15.7 Seconds (9.0-11.0)
[2018-04-20 11:49] LABS: INR 1.56 INR (0.90-1.10); Partial Thrombolplastin Time 36.4 Seconds (24-32)
[2018-04-20 11:59] LABS: Albumin * 2.1 gm/dl (3.4-5.0); Anion Gap 9.4 mmol/L (6.8-13.8); BUN/Creatinine Ratio 20.4 (9.0-21.6); Bilirubin, Total 7.6 mg/dL (0.0-1.1); Ca. Corrected For Albumin 9.2 mg/dL (8.4-10.2); Carbon Dioxide 28.1 mmol/L (24-32.6); Magnesium 1.7 mg/dL (1.2-2.8); Potassium 4.5 mmol/L (3.4-4.6)
[2018-04-20] MEDS ORDERED: NORMAL SALINE 1,000 ML IV ONE (12:31)
[2018-04-20 12:55] LABS: Urine Appearance Clear (CLEAR); Urine Color Amber; Urine Ketone Negative (NEGATIVE); Urine Protein 15 mg/dL (NEGATIVE); Urine pH 5.5 pH (5.0-7.0)
[2018-04-20 12:56] LABS: Urine Bilirubin 3 mg/dl (NEGATIVE); Urine Blood 150 /ul (NEGATIVE); Urine Nitrite Negative (NEGATIVE); Urine Urobilinogen Normal (NORMAL)
[2018-04-20 12:57] LABS: Urine RBC 0-5 /hpf (0-5); Urine WBC 0-5 /hpf (0-5)
[2018-04-20 13:01] LABS: Urine Bacteria TRACE; Urine Hyaline Cast 0-5 /LPF
[2018-04-20] MEDS ORDERED: CEPHALEXIN MONOHYDRATE 250 MG CAPSULE ONE (21:32)
[2018-04-20] MEDS: CEPHALEXIN MONOHYDRATE 250 MG CAPSULE PO SCH (22:00)
[2018-04-20] MEDS: LIDOCAINE 1 PATCH ADH..PATCH TP SCH (22:01)
--- NOTE | 2018-04-20 22:21 | HP ---
Chief Complaint - Chief Complaint Date of Service: 04/20/18 Time of Service: 20:00 Chief Complaint: dizziness, falls History of Present Illness: 63 yo M with hx of alcoholic cirrhosis who presents to the ER due to dizziness and frequent falls. His family found him down and were afraid for his health. He has worsening liver function. He is unable to care for himself. There is the beginnings of large ulcers on both buttocks. He is ascitic. He has 3+ pitting edema to just below his legs. He states when he stands up, he gets extremely dizzy and this is what causes him to fall. His blood pressure is low due to third spacing. He has an elevated lactic acid and wbc. He denies abdominal pain or fever. He is also complaining of back pain, xr showed spondylosis and ddd with possible compression fx at L4. Medical History (Last Reviewed 04/20/18 @ 14:55 by Nicole Jay RN) Tremor (Chronic) Onset Date: ~05/30/17 Shoulder dislocation (Chronic) Onset Date: ~07/17/14 Osteoarthritis (Chronic) Onset Date: Unknown Neuropathy (Chronic) Onset Date: ~05/30/17 JD on CPAP (Chronic) Onset Date: Unknown Rib fracture (Chronic) Onset Date: Unknown Morbid obesity (Chronic) Onset Date: Unknown Hyperlipidemia (Chronic) Onset Date: Unknown Hypertension (Chronic) Onset Date: Unknown GERD (gastroesophageal reflux disease) (Chronic) Onset Date: ~01/24/15 Depression (Chronic) Onset Date: Unknown Colonic polyp (Chronic) Onset Date: Unknown Cirrhosis of liver (Chronic) Onset Date: Unknown Bacterial pneumonia (Chronic) Onset Date: Unknown Surgical History: Surgical History (Last Reviewed 04/20/18 @ 14:55 by Nicole Jay RN) H/O repair of rotator cuff (Resolved) Onset Date: ~10/25/14 Family History: Family History (Last Updated 04/20/18 @ 14:56 by Nicole Jay RN) Other No family history of cancer Social History: Patient Lives/Resources Home Utilized Preferred Language Occitan Do you have any christian or No cultural preference? Smoking Status Never smoker Have you smoked in the past 12 No months Abuse History No History of abuse Psych History No pertinent hx Review Of Systems (GEN) - Review of Systems Generalized/Overall Review: Present: Weakness, Fatigue, Weight gain EENTM: Present: No Symptoms Reported Respiratory: Present: No Symptoms Reported Cardiac: Present: No Symptoms Reported Abdominal: Absent: Nausea, Vomiting, Hematemesis, Abdominal Pain Genitourinary: Present: No Symptoms Reported Musculoskeletal: Present: Back Pain Skin: Present: Other - ulcers on his buttocks Immunizations: IMMUNIZATION HX Immunizations Up to Date Yes History of Influenza Vaccine Yes Hx Pneumococcal Vaccination Yes Allergies/Adverse Reactions: Allergies Allergy/AdvReac Type Severity Reaction Status Date / Time No Known Allergies Allergy Verified 04/20/18 11:16 Home Medications: HOME MEDICATIONS Spironolactone 100 mg PO DAILY 08/26/17 [Last Taken Unknown] Lactulose [Enulose] 30 ml PO TID 12/22/17 [Last Taken Unknown] Rifaximin [Xifaxan] 550 mg PO BID 01/01/18 [Last Taken Unknown] Zinc 50 mg PO DAILY 01/01/18 [Last Taken Unknown] atorvastatin 40 mg tablet 40 mg PO DAILY #30 tab 03/12/18 [Last Taken Unknown] ciprofloxacin 500 mg tablet 500 mg PO DAILY #30 tab 03/12/18 [Last Taken Unknown ] omeprazole 20 mg capsule,delayed release 20 mg PO DAILY #30 cap 03/14/18 [Last Taken Unknown] lisinopril 20 mg tablet 20 mg PO DAILY #30 tab 04/07/18 [Last Taken Unknown] linagliptin 5 mg tablet 5 mg PO DAILY 04/08/18 [Last Taken Unknown] blood sugar diagnostic strips See Dose Instructions .ROUTE .MEDSUPPLY #100 ea [Last Taken Unknown] lancets See Dose Instructions .ROUTE .MEDSUPPLY #100 ea 04/09/18 [Last Taken Unknown] baclofen 10 mg tablet 10 mg PO TID 30 Days #90 tab 04/10/18 [Last Taken Unknown] duloxetine 30 mg capsule,delayed release 30 mg PO DAILY #90 cap 04/10/18 [Last Taken Unknown] Furosemide [Lasix] 40 mg PO DAILY 04/20/18 [Last Taken Unknown] Exam - Exam Vital Signs: Vital Signs - Last Taken Temp 36.4 C 04/20/18 19:15 Pulse 88 04/20/18 19:15 Resp 18 04/20/18 19:15 BP 87/40 L 04/20/18 19:15 Pulse Ox 98 04/20/18 19:15 Constitutional: Present: Alert, Oriented x3, Mild distress Neck: Present: non-tender, full range of motion, supple Back Exam: Present: muscle spasm - para lumbar muscle spasm, vertebral tenderness - L4, L5 Respiratory: Present: chest non-tender, lungs clear, normal breath sounds, no respiratory distress Cardiovascular/Chest: Present: regular rate, rhythm, edema - 3+ pitting edema to just below his knees Abdomen: Present: soft, nontender, distended /Rectal: Present: Exam deferred Skin Exam: Present: other - early signs of decubitus ulcer formation on both buttocks (L>R) Appearance: Present: appropriate insight, disheveled Eye contact: Present: cooperative, good eye contact Thoughts: Present: normal thought pattern, normal mood /affect Diagnostic Studies: Abnormal Lab Results 04/20/18 04/20/18 04/20/18 Range/Units 11:28 11:28 11:28 WBC 15.4 H (4.0-10.5) K/mm3 RBC 2.86 L (4.7-6.0) M/mm3 Hgb 9.1 L (13.5-18.0) gm/dL Hct 27.3 L (42.0-52.0) % MCH 31.8 H (27-31) pg RDW 17.2 H (11.5-14.0) % Plt Count 51 L (150-450) K/mm3 Immature Gran % (Auto) 0.80 H (0.001-0.429) % Immature Gran # (Auto) 0.12 H (0.000-0.0310) K/mm3 Neutrophils % 88.0 H (42-75.0) % Lymphocytes % 3.6 L (20-51) % Neutrophils # 13.6 H (1.3-6.0) K/mm3 Lymphocytes # 0.56 L (1.5-3.5) k/mm3 Monocytes # 1.1 H (0.0-1.0) k/mm3 PT 15.7 H (9.0-11.0) Seconds INR (Anticoag Therapy) 1.56 H (0.90-1.10) INR PTT (Owen) 36.4 H (24-32) Seconds BUN 37 H D (6-23) mg/dL Creatinine 1.81 H D (0.4-1.4) mg/dL Est GFR (Non-Af Amer) 40 L D (60-130) mL/min Lactic Acid, Venous (0.4-2.0) mmol/L Total Bilirubin 7.6 H (0.0-1.1) mg/dL AST 109 H (0-48) U/L Alkaline Phosphatase 219 H (50-170) U/L Creatine Kinase 887 H (0-259) U/L Total Protein 5.0 L (6.2-8.2) gm/dL Albumin 2.1 L (3.4-5.0) gm/dl Urine Protein (NEGATIVE) mg/dL Urine Blood (NEGATIVE) /ul Urine Bilirubin (NEGATIVE) mg/dl Urine Ictotest (NEGATIVE) Hyaline Casts (NONE) /LPF 04/20/18 04/20/18 04/20/18 Range/Units 11:28 12:30 14:28 WBC (4.0-10.5) K/mm3 RBC (4.7-6.0) M/mm3 Hgb (13.5-18.0) gm/dL Hct (42.0-52.0) % MCH (27-31) pg RDW (11.5-14.0) % Plt Count (150-450) K/mm3 Immature Gran % (Auto) (0.001-0.429) % Immature Gran # (Auto) (0.000-0.0310) K/mm3 Neutrophils % (42-75.0) % Lymphocytes % (20-51) % Neutrophils # (1.3-6.0) K/mm3 Lymphocytes # (1.5-3.5) k/mm3 Monocytes # (0.0-1.0) k/mm3 PT (9.0-11.0) Seconds INR (Anticoag Therapy) (0.90-1.10) INR PTT (Carol) (24-32) Seconds BUN (6-23) mg/dL Creatinine (0.4-1.4) mg/dL Est GFR (Non-Af Amer) (60-130) mL/min Lactic Acid, Venous 2.6 H* 2.5 H* (0.4-2.0) mmol/L Total Bilirubin (0.0-1.1) mg/dL AST (0-48) U/L Alkaline Phosphatase (50-170) U/L Creatine Kinase (0-259) U/L Total Protein (6.2-8.2) gm/dL Albumin (3.4-5.0) gm/dl Urine Protein 15 H (NEGATIVE) mg/dL Urine Blood 150 H (NEGATIVE) /ul Urine Bilirubin 3 H (NEGATIVE) mg/dl Urine Ictotest Positive H (NEGATIVE) Hyaline Casts 0-5 H (NONE) /LPF Laboratory Results WBC 15.4 K/mm3 (4.0-10.5) H 04/20/18 11:28 RBC 2.86 M/mm3 (4.7-6.0) L 04/20/18 11:28 Hgb 9.1 gm/dL (13.5-18.0) L 04/20/18 11:28 Hct 27.3 % (42.0-52.0) L 04/20/18 11:28 MCV 95.5 fl (78-100) 04/20/18 11:28 MCH 31.8 pg (27-31) H 04/20/18 11:28 MCHC 33.3 g/dl (32-36) 04/20/18 11:28 RDW 17.2 % (11.5-14.0) H 04/20/18 11:28 Plt Count 51 K/mm3 (150-450) L 04/20/18 11:28 MPV 10.7 fl (8-11.3) 04/20/18 11:28 Immature Gran % (Auto) 0.80 % (0.001-0.429) H 04/20/18 11:28 Immature Gran # (Auto) 0.12 K/mm3 (0.000-0.0310) H 04/20/18 11:28 Neutrophils % 88.0 % (42-75.0) H 04/20/18 11:28 Lymphocytes % 3.6 % (20-51) L 04/20/18 11:28 Monocytes % 7.4 % (0.0-9) 04/20/18 11:28 Eosinophils % 0.0 % (0.0-3.0) 04/20/18 11:28 Basophils % 0.2 % (0.0-1.0) 04/20/18 11:28 Nucleated RBC % 0.0 k/mm3 (0-1) 04/20/18 11:28 Neutrophils # 13.6 K/mm3 (1.3-6.0) H 04/20/18 11:28 Lymphocytes # 0.56 k/mm3 (1.5-3.5) L 04/20/18 11:28 Monocytes # 1.1 k/mm3 (0.0-1.0) H 04/20/18 11:28 Eosinophils # 0.0 k/mm3 (0.0-0.7) 04/20/18 11:28 Absolute Basophils 0.0 k/mm3 (0.0-0.1) 04/20/18 11:28 PT 15.7 Seconds (9.0-11.0) H 04/20/18 11:28 INR (Anticoag Therapy) 1.56 INR (0.90-1.10) H 04/20/18 11:28 PTT (Carol) 36.4 Seconds (24-32) H 04/20/18 11:28 Sodium 134 mmol/L (132-142) 04/20/18 11:28 Plasma Sodium 134 mmol/L (130-142) 04/20/18 11:28 Potassium 4.5 mmol/L (3.4-4.6) D 04/20/18 11:28 Chloride 101 mmol/L (97-106) 04/20/18 11:28 Carbon Dioxide 28.1 mmol/L (24-32.6) 04/20/18 11:28 Anion Gap 9.4 mmol/L (6.8-13.8) 04/20/18 11:28 BUN 37 mg/dL (6-23) H D 04/20/18 11:28 Creatinine 1.81 mg/dL (0.4-1.4) H D 04/20/18 11:28 Est GFR (Non-Af Amer) 40 mL/min (60-130) L D 04/20/18 11:28 BUN/Creatinine Ratio 20.4 (9.0-21.6) 04/20/18 11:28 Random Glucose 109 mg/dL (70-110) 04/20/18 11:28 Lactic Acid, Venous 2.5 mmol/L (0.4-2.0) H* 04/20/18 14:28 Calcium 8.0 mg/dL (7.9-10.9) 04/20/18 11:28 Calcium Adj for Albumin 9.2 mg/dL (8.4-10.2) 04/20/18 11:28 Magnesium 1.7 mg/dL (1.2-2.8) 04/20/18 11:28 Total Bilirubin 7.6 mg/dL (0.0-1.1) H 04/20/18 11:28 AST 109 U/L (0-48) H 04/20/18 11:28 ALT 43 U/L (19-67) 04/20/18 11:28 Alkaline Phosphatase 219 U/L (50-170) H 04/20/18 11:28 Ammonia Less than 17.0 mcmol/L (11-35) 04/20/18 11:28 Creatine Kinase 887 U/L (0-259) H 04/20/18 11:28 Total Protein 5.0 gm/dL (6.2-8.2) L 04/20/18 11:28 Albumin 2.1 gm/dl (3.4-5.0) L 04/20/18 11:28 Urine Color Kaelyn 04/20/18 12:30 Urine Appearance Clear (CLEAR) 04/20/18 12:30 Urine pH 5.5 pH (5.0-7.0) 04/20/18 12:30 Ur Specific Zullinger 1.030 SP.GR. (1.005-1.030) 04/20/18 12:30 Urine Protein 15 mg/dL (NEGATIVE) H 04/20/18 12:30 Urine Glucose (UA) Negative mg/dL (NEGATIVE) 04/20/18 12:30 Urine Ketones Negative mg/dL (NEGATIVE) 04/20/18 12:30 Urine Blood 150 /ul (NEGATIVE) H 04/20/18 12:30 Urine Nitrate Negative (NEGATIVE) 04/20/18 12:30 Urine Bilirubin 3 mg/dl (NEGATIVE) H 04/20/18 12:30 Urine Ictotest Positive (NEGATIVE) H 04/20/18 12:30 Prot Sulfosalicylic Acd 1+ mg/dL (0) 04/20/18 12:30 Urine Urobilinogen Normal EU/dl (NORMAL) 04/20/18 12:30 Ur Leukocyte Esterase Negative /ul (NEGATIVE) 04/20/18 12:30 Urine RBC 0-5 /hpf (0-5) 04/20/18 12:30 Urine WBC 0-5 /hpf (0-5) 04/20/18 12:30 Ur Epithelial Cells 0-5 /hpf (0-5) 04/20/18 12:30 Urine Bacteria Trace (NONE) 04/20/18 12:30 Hyaline Casts 0-5 /LPF (NONE) H 04/20/18 12:30 Urine Culture Comments No culture indicated 04/20/18 12:30 Assessment/Plan - Assessment/Plan (1) Cirrhosis of liver Assessment: Worsening coags. Patient has been denied being on the transplant list now 2x. Acites worsening with third spacing and lactic acidosis. Discussed need to talk with hospice specialists, he wants to wait for his family who are not present. Problem: Chronic Qualifiers: Hepatic cirrhosis type: unspecified hepatic cirrhosis Ascites presence: unspecified Qualified Code(s): K74.60 - Unspecified cirrhosis of liver (2) Liver failure Assessment: See above Problem: Chronic Qualifiers: Liver failure chronicity: subacute Hepatic coma status: without hepatic coma Qualified Code(s): K72.00 - Acute and subacute hepatic failure without coma (3) Lactic acidosis Assessment: Likely being affected by both the infection of his buttocks as well as his underperfusing due to low blood pressure and third spacing. Will start keflex to help with the decubitus ulcers. Problem: Acute (4) Decubitus ulcer Assessment: Start keflex. Consult wound care. Problem: Acute Qualifiers: Pressure injury location: buttock Pressure injury stage: stage 1 Laterality: left Qualified Code(s): L89.321 - Pressure ulcer of left buttock, stage 1 (5) Osteoarthritis Problem: Chronic (6) Low back pain Problem: Acute Qualifiers: Chronicity: acute Back pain laterality: bilateral Sciatica presence: without sciatica Qualified Code(s): M54.5 - Low back pain
[2018-04-21] MEDS: CEPHALEXIN MONOHYDRATE 250 MG CAPSULE PO SCH ×2 (05:42→13:47)
[2018-04-21] MEDS: PANTOPRAZOLE SODIUM 20 MG TABLET.DR PO SCH (07:19)
--- NOTE | 2018-04-21 08:08 | PN ---
Progess Note - Interim Date: 04/21/18 Time: 08:07 Narrative: 04/21/18 08:07 Patient IS AAO x3. Will need to r/o HRS and possible SBP causing it . Will do US abdominal paracentesis.
[2018-04-21] MEDS: DULoxetine HCL 30 MG CAPSULE.SA PO SCH (08:36)
[2018-04-21] MEDS: FUROSEMIDE 40 MG TABLET PO SCH (08:36)
[2018-04-21] MEDS: LACTULOSE 10 G/15 ML BTL PO SCH ×3 (08:37→17:06)
[2018-04-21] MEDS ORDERED: ROSUVASTATIN CALCIUM 20 MG TABLET PO SCH (09:00)
--- NOTE | 2018-04-21 13:01 | PN ---
Subjective - Date and Time Seen Date: 04/21/18 Time: 12:54 Subjective Narrative: Patient NAD. Feels weak. Objective - Review of Systems Generalized/Overall Review: Reports: Weakness. Denies: Chills, Fever Respiratory: Denies: Cough, Shortness of Breath Cardiac: Reports: Edema. Denies: Chest Pain, Palpitations Abdominal: Reports: Nausea. Denies: Vomiting, Abdominal Pain Genitourinary Symptoms: Denies: Urgency, Frequency Musculoskeletal Complaints: Reports: Joint Pain - Vitals Vitals: Last Vital Signs Temp 36.5 C 04/21/18 12:43 Pulse 90 04/21/18 12:43 Resp 20 04/21/18 12:43 BP 118/60 04/21/18 12:43 Pulse Ox 98 04/21/18 12:43 - Abnormal Lab Findings Abnormal Lab Findings: Abnormal Lab Results 04/20/18 04/20/18 Range/Units 12:30 14:28 Lactic Acid, Venous 2.5 H* (0.4-2.0) mmol/L Urine Protein 15 H (NEGATIVE) mg/dL Urine Blood 150 H (NEGATIVE) /ul Urine Bilirubin 3 H (NEGATIVE) mg/dl Urine Ictotest Positive H (NEGATIVE) Hyaline Casts 0-5 H (NONE) /LPF - Exam Constitutional: Present: Alert, Oriented x3, Cooperative, Morbidly obese ENT Exam: Present: hearing grossly normal Neck: Present: supple Respiratory: Present: decreased breath sounds, No rales, No wheezing Cardiovascular/Chest: Present: regular rate, rhythm, no JVD, no murmur Abdomen: Present: nontender, obese, firm, distended, hypoactive Extremity: Present: no calf tenderness, lower extremity edema Assessment/Plan - Problems/Diagnosis (1) Ascites Problem: Acute Qualifiers: Ascites type: other type Qualified Code(s): R18.8 - Other ascites Narrative: r/o SBP. will do abdominal paracentesis. (2) Decubitus ulcer Problem: Acute Qualifiers: Pressure injury location: buttock Pressure injury stage: stage 1 Laterality: left Qualified Code(s): L89.321 - Pressure ulcer of left buttock, stage 1 (3) Lactic acidosis Problem: Acute (4) Liver failure Problem: Chronic Qualifiers: Liver failure chronicity: subacute Hepatic coma status: without hepatic coma Qualified Code(s): K72.00 - Acute and subacute hepatic failure without coma Narrative: due to alcohol liver cirrhosis. Ammonia level normal. (5) Acute kidney injury Problem: Acute Narrative: likely due to elevated CK. r/o Hepatorenal Syndrome (6) Afib Problem: Acute Qualifiers: Atrial fibrillation type: chronic Qualified Code(s): I48.2 - Chronic atrial fibrillation (7) Cirrhosis of liver Problem: Chronic Qualifiers: Hepatic cirrhosis type: alcoholic cirrhosis Ascites presence: with ascites Qualified Code(s): K70.31 - Alcoholic cirrhosis of liver with ascites (8) Diabetes Problem: Chronic Qualifiers: Diabetes mellitus type: type 2 (9) Morbid obesity Problem: Chronic (10) JD on CPAP Problem: Chronic (11) Elevated CK Problem: Resolved Narrative: due to falls
[2018-04-21] MEDS: NORMAL SALINE 1,000 ML IV PRN (18:20)
[2018-04-21 20:18] LABS: Urine Bilirubin Negative (NEGATIVE); Urine Blood 50 /ul (NEGATIVE); Urine Ketone Negative (NEGATIVE); Urine Nitrite Negative (NEGATIVE); Urine Protein Negative (NEGATIVE); Urine Urobilinogen Normal (NORMAL)
[2018-04-21 20:39] LABS: Urine Amorphous Sediment TRACE (NONE-FEW); Urine Appearance Clear (CLEAR); Urine Bacteria 1+; Urine Color Yellow; Urine RBC 0-5 /hpf (0-5); Urine WBC 0-5 /hpf (0-5)
[2018-04-21] MEDS: LIDOCAINE 1 PATCH ADH..PATCH TP SCH (21:35)
[2018-04-21] MEDS: ROSUVASTATIN CALCIUM 20 MG TABLET PO SCH (21:35)
[2018-04-21] MEDS: ACETAMINOPHEN 500 MG TABLET PO PRN (21:36)
[2018-04-22 05:32] LABS: Hematocrit 27.2 % (42.0-52.0); Hemoglobin 9.1 gm/dL (13.5-18.0); Mean Cell Volume 95.1 fl (78-100); Mean Corpuscular Hemoglobin 31.8 pg (27-31); Mean Corpuscular Hgb Conc 33.5 g/dl (32-36); Mean Platelet Volume 11.2 fl (8-11.3); Platelet Count 49 K/mm3 (150-450); Red Blood Count 2.86 M/mm3 (4.7-6.0); Red Cell Distribution Width 17.2 % (11.5-14.0); White Blood Count 12.3 K/mm3 (4.0-10.5)
[2018-04-22 05:43] LABS: Total Cells Counted 100
[2018-04-22 05:47] LABS: Albumin * 1.7 gm/dl (3.4-5.0); Anion Gap 7.2 mmol/L (6.8-13.8); BUN/Creatinine Ratio 27.8 (9.0-21.6); Bilirubin, Total 6.5 mg/dL (0.0-1.1); Ca. Corrected For Albumin 9.4 mg/dL (8.4-10.2); Calcium * 7.9 mg/dL (7.9-10.9); Carbon Dioxide 27.8 mmol/L (24-32.6); Total Protein 4.6 gm/dL (6.2-8.2)
[2018-04-22 06:24] LABS: Band 6 % (0-2.0); Eosinophil 2 % (0-3); Immature Granulocyte 1 (0-1); Lymphocyte 9 % (20-51); Monocyte 9 % (0-9); Neutrophil 73 % (42-75); Platelet Estimate Decreased (NORMAL)
[2018-04-22 06:26] LABS: Dohle Bodies 1+; Toxic Granulation 1+
[2018-04-22 06:27] LABS: Anisocytosis 1+; Polychromasia Trace
[2018-04-22] MEDS: PANTOPRAZOLE SODIUM 20 MG TABLET.DR PO SCH (07:29)
[2018-04-22] MEDS: LACTULOSE 10 G/15 ML BTL PO SCH ×3 (08:09→17:49)
[2018-04-22] MEDS: FUROSEMIDE 40 MG TABLET PO SCH (08:09)
[2018-04-22] MEDS: DULoxetine HCL 30 MG CAPSULE.SA PO SCH (08:09)
--- NOTE | 2018-04-22 08:55 | PN ---
Progess Note - Interim Date: 04/22/18 Time: 08:53 Narrative: 04/22/18 08:54 patient is complaining of LBP. on lidocaine patch. Paracentesis was cancelled due to paucity of ascitic fluid around the liver. will treat empircally with IV abx. had fever last night- SBP vs Decubitus ulcer.
[2018-04-22] MEDS: sitaGLIPtin PHOSPHATE 50 MG TABLET PO SCH ×2 (10:00)
[2018-04-22] MEDS: RIFAXIMIN 200 MG TABLET PO SCH ×3 (10:00→21:27)
--- NOTE | 2018-04-22 10:43 | PN ---
Subjective - Date and Time Seen Date: 04/22/18 Time: 10:37 Subjective Narrative: Patient is clincially better except for his LBP. Tmax 38.4 Objective - Review of Systems Generalized/Overall Review: Reports: Weakness, Fever. Denies: Chills Respiratory: Denies: Cough, Shortness of Breath Cardiac: Reports: Edema. Denies: Chest Pain, Palpitations Abdominal: Denies: Nausea, Vomiting Genitourinary Symptoms: Denies: Urgency, Frequency Musculoskeletal Complaints: Reports: Back Pain - Vitals Vitals: Last Vital Signs Temp 36.5 C 04/22/18 08:03 Pulse 83 04/22/18 08:09 Resp 20 04/22/18 08:03 BP 103/67 04/22/18 08:09 Pulse Ox 100 04/22/18 08:03 - Abnormal Lab Findings Abnormal Lab Findings: Abnormal Lab Results 04/21/18 04/22/18 04/22/18 Range/Units 19:24 05:10 05:10 WBC 12.3 H D (4.0-10.5) K/mm3 RBC 2.86 L (4.7-6.0) M/mm3 Hgb 9.1 L (13.5-18.0) gm/dL Hct 27.2 L (42.0-52.0) % MCH 31.8 H (27-31) pg RDW 17.2 H (11.5-14.0) % Plt Count 49 L (150-450) K/mm3 Band Neuts % (Manual) 6 H (0-2.0) % Lymphocytes % (Manual) 9 L (20-51) % Neutrophils # (Manual) 9.0 H (1.3-6.0) K/mm3 Lymphocytes # (Manual) 1.1 L (1.5-3.5) k/mm3 Monocytes # (Manual) 1.1 H (0.0-1.0) k/mm3 Platelet Estimate Decreased L (NORMAL) BUN 42 H (6-23) mg/dL Creatinine 1.51 H (0.4-1.4) mg/dL Est GFR (Non-Af Amer) 50 L D (60-130) mL/min BUN/Creatinine Ratio 27.8 H (9.0-21.6) Random Glucose 118 H (70-110) mg/dL Total Bilirubin 6.5 H (0.0-1.1) mg/dL AST 98 H (0-48) U/L Alkaline Phosphatase 235 H (50-170) U/L Total Protein 4.6 L (6.2-8.2) gm/dL Albumin 1.7 L (3.4-5.0) gm/dl Urine Blood 50 H (NEGATIVE) /ul Urine Bacteria 1+ H (NONE) Urine Comment Culture ordered L - Exam Constitutional: Present: Alert, Oriented x3, Cooperative, Morbidly obese ENT Exam: Present: hearing grossly normal Neck: Present: supple Respiratory: Present: decreased breath sounds, No rales, No wheezing Cardiovascular/Chest: Present: regular rate, rhythm, no JVD, no murmur Abdomen: Present: Normal bowel sounds, obese, firm, distended Extremity: Present: no calf tenderness, lower extremity edema Assessment/Plan - Problems/Diagnosis (1) Ascites Problem: Acute Qualifiers: Ascites type: other type Qualified Code(s): R18.8 - Other ascites Narrative: r/o SBP. will cover with IV antibiotics. had fever last night T max 38.4. (2) Decubitus ulcer Problem: Acute Qualifiers: Pressure injury location: buttock Pressure injury stage: stage 1 Laterality: left Qualified Code(s): L89.321 - Pressure ulcer of left buttock, stage 1 Narrative: continue with offloading measures. (3) Lactic acidosis Problem: Resolved (4) Liver failure Problem: Chronic Qualifiers: Liver failure chronicity: subacute Hepatic coma status: without hepatic coma Qualified Code(s): K72.00 - Acute and subacute hepatic failure without coma (5) Acute kidney injury Problem: Acute Narrative: Cr improved with gentle hydration. likely due to dehydration and Ck . unlikely HRS. (6) Afib Problem: Chronic Qualifiers: Atrial fibrillation type: chronic Qualified Code(s): I48.2 - Chronic atrial fibrillation (7) Cirrhosis of liver Problem: Chronic Qualifiers: Hepatic cirrhosis type: alcoholic cirrhosis Ascites presence: with ascites Qualified Code(s): K70.31 - Alcoholic cirrhosis of liver with ascites (8) Diabetes Problem: Chronic Qualifiers: Diabetes mellitus type: type 2 (9) Morbid obesity Problem: Chronic (10) JD on CPAP Problem: Chronic (11) Elevated CK Problem: Resolved (12) Acute bilateral low back pain Problem: Acute Qualifiers: Sciatica presence: without sciatica Qualified Code(s): M54.5 - Low back pain Narrative: possible compression fracture L4 on XRAY. continue with PT/OT, Lidoacine patch. he is for [facility] in [facility] next week.
[2018-04-22] MEDS: NORMAL SALINE 1,000 ML IV PRN (15:04)
[2018-04-22] MEDS: LIDOCAINE 1 PATCH ADH..PATCH TP SCH (21:27)
[2018-04-22] MEDS: ROSUVASTATIN CALCIUM 20 MG TABLET PO SCH (21:28)
[2018-04-23] MEDS: PANTOPRAZOLE SODIUM 20 MG TABLET.DR PO SCH (07:20)
[2018-04-23] MEDS: DULoxetine HCL 30 MG CAPSULE.SA PO SCH (08:12)
[2018-04-23] MEDS: LACTULOSE 10 G/15 ML BTL PO SCH ×3 (08:13→16:25)
[2018-04-23] MEDS: sitaGLIPtin PHOSPHATE 50 MG TABLET PO SCH (08:14)
[2018-04-23] MEDS: FUROSEMIDE 40 MG TABLET PO SCH (08:14)
[2018-04-23] MEDS: RIFAXIMIN 200 MG TABLET PO SCH ×2 (08:14→23:46)
--- NOTE | 2018-04-23 09:01 | PN ---
Subjective - Date and Time Seen Date: 04/23/18 Time: 08:57 Subjective Narrative: Main complaint is LBP. On Lidocaine patch and Tyenol. Afebrile for 24-26 hours. Objective - Review of Systems Generalized/Overall Review: Reports: Weakness. Denies: Fever Respiratory: Denies: Cough, Shortness of Breath Cardiac: Reports: Edema. Denies: Chest Pain, Palpitations Abdominal: Denies: Nausea, Vomiting Genitourinary Symptoms: Denies: Urgency, Frequency Musculoskeletal Complaints: Reports: Back Pain - Vitals Vitals: Last Vital Signs Temp 36.7 C 04/23/18 07:51 Pulse 92 04/23/18 08:14 Resp 18 04/23/18 07:51 BP 121/55 04/23/18 08:14 Pulse Ox 98 04/23/18 07:51 - Exam Constitutional: Present: Alert, Oriented x3, Cooperative ENT Exam: Present: hearing grossly normal Neck: Present: supple Respiratory: Present: decreased breath sounds, No rales, No wheezing Cardiovascular/Chest: Present: no JVD, no murmur, irregularly irregular Extremity: Present: no calf tenderness, lower extremity edema Assessment/Plan - Problems/Diagnosis (1) Ascites Problem: Acute Qualifiers: Ascites type: other type Qualified Code(s): R18.8 - Other ascites Narrative: r/o SBP (2) Decubitus ulcer Problem: Acute Qualifiers: Pressure injury location: buttock Pressure injury stage: stage 1 Laterality: left Qualified Code(s): L89.321 - Pressure ulcer of left buttock, stage 1 (3) Lactic acidosis Problem: Resolved (4) Liver failure Problem: Chronic Qualifiers: Liver failure chronicity: subacute Hepatic coma status: without hepatic coma Qualified Code(s): K72.00 - Acute and subacute hepatic failure without coma (5) Acute kidney injury Problem: Acute Narrative: improved. will follow up BMP (6) Afib Problem: Chronic Qualifiers: Atrial fibrillation type: chronic Qualified Code(s): I48.2 - Chronic atrial fibrillation (7) Cirrhosis of liver Problem: Chronic Qualifiers: Hepatic cirrhosis type: alcoholic cirrhosis Ascites presence: with ascites Qualified Code(s): K70.31 - Alcoholic cirrhosis of liver with ascites (8) Diabetes Problem: Chronic Qualifiers: Diabetes mellitus type: type 2 (9) Morbid obesity Problem: Chronic (10) JD on CPAP Problem: Chronic (11) Elevated CK Problem: Resolved (12) Acute bilateral low back pain Problem: Acute Qualifiers: Sciatica presence: without sciatica Qualified Code(s): M54.5 - Low back pain Narrative: Questionable L4 compression frature. Will add Hydromorphone.
[2018-04-23 10:00] LABS: Albumin * 1.6 gm/dl (3.4-5.0); Anion Gap 9.7 mmol/L (6.8-13.8); BUN/Creatinine Ratio 31.7 (9.0-21.6); Bilirubin, Total 6.3 mg/dL (0.0-1.1); Ca. Corrected For Albumin 9.4 mg/dL (8.4-10.2); Calcium * 7.8 mg/dL (7.9-10.9); Carbon Dioxide 27.6 mmol/L (24-32.6); Potassium 4.3 mmol/L (3.4-4.6); Total Protein 4.8 gm/dL (6.2-8.2)
[2018-04-23 10:01] LABS: Hematocrit 27.1 % (42.0-52.0); Hemoglobin 9.1 gm/dL (13.5-18.0); Mean Cell Volume 94.1 fl (78-100); Mean Corpuscular Hemoglobin 31.6 pg (27-31); Mean Corpuscular Hgb Conc 33.6 g/dl (32-36); Mean Platelet Volume 11.3 fl (8-11.3); Neutrophil # 12.8 K/mm3 (1.3-6.0); Neutrophil % 78.4 % (42-75.0); Platelet Count 66 K/mm3 (150-450); Red Blood Count 2.88 M/mm3 (4.7-6.0); Red Cell Distribution Width 17.3 % (11.5-14.0); White Blood Count 16.4 K/mm3 (4.0-10.5)
[2018-04-23] MEDS: NORMAL SALINE 1,000 ML IV PRN (12:02)
[2018-04-23] MEDS: ACETAMINOPHEN 500 MG TABLET PO PRN ×2 (17:06→23:46)
[2018-04-23] MEDS: ROSUVASTATIN CALCIUM 20 MG TABLET PO SCH (23:45)
[2018-04-23] MEDS: LIDOCAINE 1 PATCH ADH..PATCH TP SCH (23:46)
[2018-04-24 07:15] LABS: Hematocrit 28.2 % (42.0-52.0); Hemoglobin 9.3 gm/dL (13.5-18.0); Mean Cell Volume 95.3 fl (78-100); Mean Corpuscular Hemoglobin 31.4 pg (27-31); Mean Platelet Volume 11.1 fl (8-11.3); Neutrophil # 10.9 K/mm3 (1.3-6.0); Neutrophil % 74.1 % (42-75.0); Platelet Count 62 K/mm3 (150-450); Red Blood Count 2.96 M/mm3 (4.7-6.0); Red Cell Distribution Width 17.5 % (11.5-14.0); White Blood Count 14.6 K/mm3 (4.0-10.5)
[2018-04-24 07:42] LABS: Albumin * 1.7 gm/dl (3.4-5.0); Anion Gap 7.8 mmol/L (6.8-13.8); BUN/Creatinine Ratio 29.7 (9.0-21.6); Bilirubin, Total 6.8 mg/dL (0.0-1.1); Ca. Corrected For Albumin 9.2 mg/dL (8.4-10.2); Calcium * 7.7 mg/dL (7.9-10.9); Carbon Dioxide 29.5 mmol/L (24-32.6); Potassium 4.3 mmol/L (3.4-4.6); Total Protein 4.5 gm/dL (6.2-8.2)
[2018-04-24] MEDS: PANTOPRAZOLE SODIUM 20 MG TABLET.DR PO SCH (07:48)
[2018-04-24] MEDS: HYDROmorphone HCL 2 MG TABLET PO PRN (07:53)
[2018-04-24] MEDS: FUROSEMIDE 40 MG TABLET PO SCH (08:51)
[2018-04-24] MEDS: LACTULOSE 10 G/15 ML BTL PO SCH ×3 (08:52→16:38)
[2018-04-24] MEDS: DULoxetine HCL 30 MG CAPSULE.SA PO SCH (08:52)
[2018-04-24] MEDS: RIFAXIMIN 200 MG TABLET PO SCH ×2 (08:52→21:39)
[2018-04-24] MEDS: sitaGLIPtin PHOSPHATE 50 MG TABLET PO SCH (08:52)
[2018-04-24] MEDS: NORMAL SALINE 1,000 ML IV PRN (08:56)
--- NOTE | 2018-04-24 09:08 | PN ---
Subjective - Date and Time Seen Date: 04/24/18 Time: 09:02 Subjective Narrative: patient NAD. positive LBP. Cr back to normal. afebrile for 48 hours. Objective - Review of Systems Generalized/Overall Review: Reports: Weakness. Denies: Chills, Fever Respiratory: Denies: Cough, Shortness of Breath Cardiac: Denies: Chest Pain, Edema, Palpitations Abdominal: Denies: Nausea, Vomiting Genitourinary Symptoms: Denies: Urgency, Frequency Musculoskeletal Complaints: Reports: Back Pain - Vitals Vitals: Last Vital Signs Temp 36.8 C 04/24/18 06:51 Pulse 90 04/24/18 08:51 Resp 18 04/24/18 06:51 BP 112/68 04/24/18 08:51 Pulse Ox 99 04/24/18 06:51 - Abnormal Lab Findings Abnormal Lab Findings: Abnormal Lab Results 04/23/18 04/23/18 04/24/18 Range/Units 09:35 09:35 07:00 WBC 16.4 H D 14.6 H (4.0-10.5) K/mm3 RBC 2.88 L 2.96 L (4.7-6.0) M/mm3 Hgb 9.1 L 9.3 L (13.5-18.0) gm/dL Hct 27.1 L 28.2 L (42.0-52.0) % MCH 31.6 H 31.4 H (27-31) pg RDW 17.3 H 17.5 H (11.5-14.0) % Plt Count 66 L 62 L (150-450) K/mm3 Immature Gran % (Auto) 3.40 H 4.70 H (0.001-0.429) % Immature Gran # (Auto) 0.55 H 0.68 H (0.000-0.0310) K/mm3 Neutrophils % 78.4 H (42-75.0) % Lymphocytes % 5.1 L 9.2 L (20-51) % Monocytes % 12.4 H 10.3 H (0.0-9) % Neutrophils # 12.8 H 10.9 H (1.3-6.0) K/mm3 Lymphocytes # 0.84 L 1.20 L (1.5-3.5) k/mm3 Monocytes # 2.0 H 1.4 H (0.0-1.0) k/mm3 BUN 46 H (6-23) mg/dL Creatinine 1.45 H (0.4-1.4) mg/dL Est GFR (Non-Af Amer) 52 L (60-130) mL/min BUN/Creatinine Ratio 31.7 H (9.0-21.6) Random Glucose 153 H (70-110) mg/dL Calcium 7.8 L (7.9-10.9) mg/dL Total Bilirubin 6.3 H (0.0-1.1) mg/dL AST 86 H (0-48) U/L Alkaline Phosphatase 234 H (50-170) U/L Total Protein 4.8 L (6.2-8.2) gm/dL Albumin 1.6 L (3.4-5.0) gm/dl 04/24/18 Range/Units 07:00 WBC (4.0-10.5) K/mm3 RBC (4.7-6.0) M/mm3 Hgb (13.5-18.0) gm/dL Hct (42.0-52.0) % MCH (27-31) pg RDW (11.5-14.0) % Plt Count (150-450) K/mm3 Immature Gran % (Auto) (0.001-0.429) % Immature Gran # (Auto) (0.000-0.0310) K/mm3 Neutrophils % (42-75.0) % Lymphocytes % (20-51) % Monocytes % (0.0-9) % Neutrophils # (1.3-6.0) K/mm3 Lymphocytes # (1.5-3.5) k/mm3 Monocytes # (0.0-1.0) k/mm3 BUN 41 H (6-23) mg/dL Creatinine (0.4-1.4) mg/dL Est GFR (Non-Af Amer) 55 L (60-130) mL/min BUN/Creatinine Ratio 29.7 H (9.0-21.6) Random Glucose (70-110) mg/dL Calcium 7.7 L (7.9-10.9) mg/dL Total Bilirubin 6.8 H (0.0-1.1) mg/dL AST 80 H (0-48) U/L Alkaline Phosphatase 251 H (50-170) U/L Total Protein 4.5 L (6.2-8.2) gm/dL Albumin 1.7 L (3.4-5.0) gm/dl - Exam Constitutional: Present: Alert, Oriented x3, Cooperative, Morbidly obese ENT Exam: Present: hearing grossly normal Neck: Present: supple Respiratory: Present: normal breath sounds, No rales, No wheezing Cardiovascular/Chest: Present: regular rate, rhythm, no JVD, no murmur Abdomen: Present: Normal bowel sounds, soft, nontender, obese Extremity: Present: no calf tenderness, pedal edema Assessment/Plan - Problems/Diagnosis (1) Acute bilateral low back pain Problem: Acute Qualifiers: Sciatica presence: without sciatica Qualified Code(s): M54.5 - Low back pain Narrative: possible L4 compression fracture.continue with PT/OT and pain medications but will stop hislidocainepatch and change it with Fentanyl patch. (2) Ascites Problem: Acute Qualifiers: Ascites type: other type Qualified Code(s): R18.8 - Other ascites Narrative: likely with SBP. WBC down. (3) Decubitus ulcer Problem: Acute Qualifiers: Pressure injury location: buttock Pressure injury stage: stage 1 Laterality: left Qualified Code(s): L89.321 - Pressure ulcer of left buttock, stage 1 (4) Liver failure Problem: Chronic Qualifiers: Liver failure chronicity: subacute Hepatic coma status: without hepatic coma Qualified Code(s): K72.00 - Acute and subacute hepatic failure without coma (5) Acute kidney injury Problem: Acute (6) Afib Problem: Chronic Qualifiers: Atrial fibrillation type: chronic Qualified Code(s): I48.2 - Chronic atrial fibrillation (7) Cirrhosis of liver Problem: Chronic Qualifiers: Hepatic cirrhosis type: alcoholic cirrhosis Ascites presence: with ascites Qualified Code(s): K70.31 - Alcoholic cirrhosis of liver with ascites (8) Diabetes Problem: Chronic Qualifiers: Diabetes mellitus type: type 2 (9) Morbid obesity Problem: Chronic (10) JD on CPAP Problem: Chronic
[2018-04-24] MEDS ORDERED: fentaNYL 12 MCG PATCH.TD72 TD SCH (10:00)
[2018-04-24] MEDS: ACETAMINOPHEN 500 MG TABLET PO PRN (15:35)
[2018-04-24] MEDS: ROSUVASTATIN CALCIUM 20 MG TABLET PO SCH (21:39)
[2018-04-25] MEDS: HYDROmorphone HCL 2 MG TABLET PO PRN ×2 (00:32→08:02)
[2018-04-25 05:33] LABS: Hematocrit 29.4 % (42.0-52.0); Hemoglobin 9.6 gm/dL (13.5-18.0); Mean Cell Volume 95.1 fl (78-100); Mean Corpuscular Hemoglobin 31.1 pg (27-31); Mean Corpuscular Hgb Conc 32.7 g/dl (32-36); Mean Platelet Volume 10.7 fl (8-11.3); Platelet Count 94 K/mm3 (150-450); Red Blood Count 3.09 M/mm3 (4.7-6.0); Red Cell Distribution Width 17.7 % (11.5-14.0); White Blood Count 17.7 K/mm3 (4.0-10.5)
[2018-04-25 05:36] LABS: Total Cells Counted 100
[2018-04-25 05:59] LABS: Atypical (Reactive) Lymph 1 % (0-2); Band 6 % (0-2.0); Eosinophil 1 % (0-3); Immature Granulocyte 5 (0-1); Lymphocyte 9 % (20-51); Monocyte 3 % (0-9); Neutrophil 75 % (42-75); Neutrophil # 13.3 K/mm3 (1.3-6.0); Platelet Estimate Normal (NORMAL); RBC Morphology Normal (NORMAL)
[2018-04-25] MEDS: DULoxetine HCL 30 MG CAPSULE.SA PO SCH (08:00)
[2018-04-25] MEDS: LACTULOSE 10 G/15 ML BTL PO SCH (08:00)
[2018-04-25] MEDS: sitaGLIPtin PHOSPHATE 50 MG TABLET PO SCH (08:00)
[2018-04-25] MEDS: PANTOPRAZOLE SODIUM 20 MG TABLET.DR PO SCH (08:00)
[2018-04-25] MEDS: FUROSEMIDE 40 MG TABLET PO SCH (08:01)
[2018-04-25] MEDS: RIFAXIMIN 200 MG TABLET PO SCH (08:01)
--- NOTE | 2018-04-25 08:54 | PN ---
Subjective - Date and Time Seen Date: 04/25/18 Time: 08:46 Subjective Narrative: Patient is NAD. His WBC is up again . Objective - Review of Systems Generalized/Overall Review: Reports: Weakness. Denies: Chills, Fever Respiratory: Denies: Cough, Shortness of Breath, Orthopnea Cardiac: Reports: Edema. Denies: Chest Pain, Palpitations Abdominal: Denies: Nausea, Vomiting Genitourinary Symptoms: Denies: Urgency, Frequency Musculoskeletal Complaints: Reports: Back Pain - Vitals Vitals: Last Vital Signs Temp 36.5 C 04/25/18 07:12 Pulse 101 H 04/25/18 08:01 Resp 12 04/25/18 07:12 BP 135/73 04/25/18 08:01 Pulse Ox 93 04/25/18 07:12 - Abnormal Lab Findings Abnormal Lab Findings: Abnormal Lab Results 04/25/18 Range/Units 05:05 WBC 17.7 H D (4.0-10.5) K/mm3 RBC 3.09 L (4.7-6.0) M/mm3 Hgb 9.6 L (13.5-18.0) gm/dL Hct 29.4 L (42.0-52.0) % MCH 31.1 H (27-31) pg RDW 17.7 H (11.5-14.0) % Plt Count 94 L (150-450) K/mm3 Band Neuts % (Manual) 6 H (0-2.0) % Lymphocytes % (Manual) 9 L (20-51) % Immature Granulocytes 5 H (0-1) Neutrophils # (Manual) 13.3 H (1.3-6.0) K/mm3 - Exam Constitutional: Present: Alert, Oriented x3, Cooperative, Morbidly obese ENT Exam: Present: hearing grossly normal Neck: Present: supple Respiratory: Present: decreased breath sounds, No rales, No wheezing Cardiovascular/Chest: Present: regular rate, rhythm, no JVD, no murmur Abdomen: Present: Normal bowel sounds, soft, nontender, no rebound tenderness, obese, distended Extremity: Present: no calf tenderness, lower extremity edema Assessment/Plan - Problems/Diagnosis (1) Leukocytosis Problem: Acute Narrative: persistent. will do MRI to rule out vertebral osteomyelitis ( diskitis) or malignancy. will add ESR, CRP. (2) Acute bilateral low back pain Problem: Acute Qualifiers: Sciatica presence: without sciatica Qualified Code(s): M54.5 - Low back pain Narrative: compression deformity with h/o frequent falls- will get an MRI in case this is a pathologic fracture- malignancy/infection(Diskitis) and a source of his leukocytosis. (3) Ascites Problem: Acute Qualifiers: Ascites type: other type Qualified Code(s): R18.8 - Other ascites Narrative: with suspected SBP but not responding to Antibiotics. Paracentesis was cancelled by radiology due to paucity of fluid mostly around the liver. will get MRI of his lumbar spine. DC did not take him due to Leukocytosis not trending for at least 2 days. (4) Decubitus ulcer Problem: Acute Qualifiers: Pressure injury location: buttock Pressure injury stage: stage 1 Laterality: left Qualified Code(s): L89.321 - Pressure ulcer of left buttock, stage 1 Narrative: unlikley source of leukocytosis as only stage I (5) Liver failure Problem: Chronic Qualifiers: Liver failure chronicity: subacute Hepatic coma status: without hepatic coma Qualified Code(s): K72.00 - Acute and subacute hepatic failure without coma (6) Acute kidney injury Problem: Resolved Narrative: initially suspected as Hepatorenal syndrome but responded with IVF. (7) Afib Problem: Chronic Qualifiers: Atrial fibrillation type: chronic Qualified Code(s): I48.2 - Chronic atrial fibrillation (8) Cirrhosis of liver Problem: Chronic Qualifiers: Hepatic cirrhosis type: alcoholic cirrhosis Ascites presence: with ascites Qualified Code(s): K70.31 - Alcoholic cirrhosis of liver with ascites Narrative: due to alcohol cirrhosis and MORALES (9) Diabetes Problem: Chronic Qualifiers: Diabetes mellitus type: type 2 (10) Morbid obesity Problem: Chronic (11) JD on CPAP Problem: Chronic
[2018-04-25] MEDS ORDERED: FUROSEMIDE 80 MG TABLET PO SCH (09:00)
[2018-04-25] MEDS ORDERED: SPIRONOLACTONE 25 MG TABLET PO SCH (09:00)
[2018-04-25] MEDS ORDERED: PIPERACILLIN SODIUM/TAZOBACTAM 3.375 GM in DEXTROSE 5 % IN WATER 100 ML IV SCH ×2 (10:30)
--- NOTE | 2018-04-25 10:39 | DS ---
Transfer Discharge Summary - Diagnosis(s)/Problems (1) Discitis of lumbar region Narrative: L3-L4 Problem: Acute (2) Leukocytosis Problem: Acute (3) Acute bilateral low back pain Problem: Acute (4) Ascites Problem: Chronic (5) Decubitus ulcer Problem: Acute (6) Liver failure Problem: Chronic (7) Acute kidney injury Problem: Resolved (8) Afib Problem: Chronic (9) Cirrhosis of liver Problem: Chronic (10) Diabetes Problem: Chronic (11) Morbid obesity Problem: Chronic (12) JD on CPAP Problem: Chronic - Course Description of Stay: Douglas Soto, is a 63 yo M with hx of alcoholic cirrhosis +/- MORALES. who presented to the ER and was admitted on 04/20/2018 due to dizziness and frequent falls' His family found him down and were afraid for his health. He has worsening liver function. He is unable to care for himself. There is the beginnings of large ulcers on both buttocks. He said he got this because he had to scoot on his buttcks to get to the phone. He is ascitic. He has 3+ pitting edema to just below his legs. He states when he stands up, he gets extremely dizzy and this is what causes him to fall. His blood pressure is low due to third spacing. He has an elevated lactic acid and wbc. He denied abdominal pain or fever. He is also complaining of back pain, xr showed spondylosis and ddd with possible compression fx at L4 likely from his frequent falls. He had Acute renal faliure and elevated CK (878). Hepatorenal syndrome was entertained but ruled out as patient's kidney function got better with gentle hydration . His WBC was elevated but there was no source of infection except for his decubitus which was only Stage I. He was started on IV Rocephin and referred to interventional radiology for abdominal paracentesis for diagnostic purpose. . On his US , he said that his ascites was limited around the periphery of his liver and due to the danger of perforating an organ, this was cancelled. He had no acute cholecystis. His IV antibiotics was continued for possible SBP but his WBC waxed and waned. He had one febrile episode but has been afebrile for the last 3-4 days. BC x 3 were normal. Because of this and his LBP, MRI of his LS spine was done and it showed a discitis L3-L4 and possible epidural abscess, mild to moderate nueroforaminal stenosis. IV rocephin was d/c and IV Zosyn started. We will transfer the patient to a tertiary institution . Procedures Performed: none - Results and Findings Results and Findings: Laboratory Results - last 24 hr 04/25/18 04/25/18 04/25/18 05:05 05:05 05:05 WBC 17.7 H D RBC 3.09 L Hgb 9.6 L Hct 29.4 L MCV 95.1 MCH 31.1 H MCHC 32.7 RDW 17.7 H Plt Count 94 L MPV 10.7 Neutrophils % (Manual) 75 Band Neuts % (Manual) 6 H Lymphocytes % (Manual) 9 L Monocytes % (Manual) 3 Eosinophils % (Manual) 1 Immature Granulocytes 5 H Neutrophils # (Manual) 13.3 H Lymphocytes # (Manual) 1.6 Monocytes # (Manual) 0.5 Eosinophils # (Manual) 0.2 Atypic/Reactive Lymphs 1 Platelet Estimate Normal RBC Morphology Normal ESR 60 H Ammonia C-Reactive Prot, Quant 15.9 H 04/25/18 10:06 WBC RBC Hgb Hct MCV MCH MCHC RDW Plt Count MPV Neutrophils % (Manual) Band Neuts % (Manual) Lymphocytes % (Manual) Monocytes % (Manual) Eosinophils % (Manual) Immature Granulocytes Neutrophils # (Manual) Lymphocytes # (Manual) Monocytes # (Manual) Eosinophils # (Manual) Atypic/Reactive Lymphs Platelet Estimate RBC Morphology ESR Ammonia 45.0 H C-Reactive Prot, Quant - Medications Medications: Active Medications Acetaminophen (Tylenol) 500 mg PO TID PRN PRN Reason: Pain/Fever Stop: 05/21/18 19:39 Last Admin: 04/24/18 15:35 Dose: 500 mg Duloxetine HCl (Cymbalta) 30 mg PO DAILY [facility] Stop: 05/21/18 09:01 Last Admin: 04/25/18 08:00 Dose: 30 mg Fentanyl (Duragesic) 12 mcg TD Q72H [facility] Stop: 05/24/18 10:01 Last Admin: 04/24/18 09:57 Dose: 12 mcg Hydromorphone HCl (Dilaudid) 2 mg PO Q6H PRN PRN Reason: Moderate Pain (pain scale 4-6) Stop: 05/23/18 08:53 Last Admin: 04/25/18 08:02 Dose: 2 mg Lactulose (Enulose) 20 g PO TID [facility] Stop: 05/21/18 09:01 Last Admin: 04/25/18 08:00 Dose: 20 g Pantoprazole Sodium (Protonix) 20 mg PO DAILY@0700 [facility] Stop: 05/21/18 07:01 Last Admin: 04/25/18 08:00 Dose: 20 mg Rifaximin (Xifaxan) 500 mg PO BID [facility] Stop: 05/21/18 09:01 Last Admin: 04/25/18 08:01 Dose: 500 mg Rosuvastatin Calcium (Crestor) 20 mg PO HS [facility] Stop: 05/21/18 21:01 Last Admin: 04/24/18 21:39 Dose: 20 mg Sitagliptin Phosphate (Januvia) 50 mg PO DAILY [facility] Stop: 05/21/18 09:01 Last Admin: 04/25/18 08:00 Dose: 50 mg Discontinued Medications Cephalexin (Keflex) 500 mg PO Q8H [facility]; Protocol Stop: 05/20/18 22:01 Last Admin: 04/21/18 13:47 Dose: 500 mg Furosemide (Lasix) 40 mg PO DAILY [facility] Stop: 05/21/18 09:01 Last Admin: 04/25/18 08:01 Dose: 40 mg Sodium Chloride (Sodium Chloride 0.9%) 500 mls @ 999 mls/hr IV .Q31M ONE Stop: 04/20/18 11:47 Last Infusion: 04/20/18 12:37 Dose: Infused Sodium Chloride (Sodium Chloride 0.9%) 1,000 mls @ 500 mls/hr IV .Q2H ONE Stop: 04/20/18 14:30 Last Infusion: 04/20/18 13:47 Dose: Infused Ceftriaxone Sodium 2,000 mg/ (Dextrose/Water) 100 mls @ 200 mls/hr IV ONCE ONE ; Protocol Stop: 04/21/18 16:23 Last Infusion: 04/21/18 17:33 Dose: Infused Sodium Chloride (Sodium Chloride 0.9%) 1,000 mls @ 50 mls/hr IV .Q20H PRN PRN Reason: HYDRATION Stop: 05/21/18 15:56 Last Infusion: 04/24/18 15:27 Dose: Infused Ceftriaxone Sodium 1,000 mg/ (Dextrose/Water) 100 mls @ 200 mls/hr IV Q24H [facility]ER ; Protocol Stop: 05/22/18 09:01 Last Infusion: 04/23/18 16:40 Dose: Infused Ceftriaxone Sodium 2,000 mg/ (Dextrose/Water) 100 mls @ 200 mls/hr IV Q24H [facility]ER ; Protocol Stop: 05/24/18 13:02 Last Infusion: 04/24/18 15:26 Dose: Infused Ceftriaxone Sodium 1,000 mg/ (Dextrose/Water) 100 mls @ 200 mls/hr IV ONCE ONE ; Protocol Stop: 04/23/18 13:42 Last Infusion: 04/23/18 16:40 Dose: Infused Lidocaine (Lidoderm 5%) 1 patch TP HS [facility] Stop: 05/20/18 22:01 Last Admin: 04/23/18 23:46 Dose: 1 patch - Disposition Disposition: Short Term Hospital Inpatient Condition: Fair Discharge Date: 04/25/18 Discharge Time: 11:49
[2018-04-25] MEDS ORDERED: LACTULOSE 10 G/15 ML BTL PO ONE (11:19)
[2018-04-25 13:32] VITALS: BP 152/80
[2018-04-25] MEDS ORDERED: SACCHAROMYCES BOULARDII 250 MG CAPSULE PO SCH (21:00)
== END 2018-04-25 13:21 | disposition short-term general hospital (02) | DRG 552 ==
LOC: MS 11:07 → ER 11:07 → INTOOBSV 13:13 → OBSVTOIN 13:13 → MS 13:42
PROVIDERS: ADMIT Family Medicine; ATTEND Internal Medicine
DX: D72.829 Elevated white blood cell count, unspecified; K72.10 Chronic hepatic failure without coma; E66.01 Morbid (severe) obesity due to excess calories; N17.9 Acute kidney failure, unspecified; L89.321 Pressure ulcer of left buttock, stage 1; I48.2 Chronic atrial fibrillation; F10.20 Alcohol dependence, uncomplicated; L89.311 Pressure ulcer of right buttock, stage 1; L89.90 Pressure ulcer of unspecified site, unspecified stage; E11.22 Type 2 diabetes mellitus with diabetic chronic kidney disease; K70.31 Alcoholic cirrhosis of liver with ascites; Z68.41 Body mass index [BMI] 40.0-44.9, adult; G47.33 Obstructive sleep apnea (adult) (pediatric); Z87.891 Personal history of nicotine dependence; M48.061 Spinal stenosis, lumbar region without neurogenic claudication; M46.46 Discitis, unspecified, lumbar region; N18.9 Chronic kidney disease, unspecified
CPT/HCPCS: 36415; 71010; 71045; 72100; 72148; 72170; 76705; 80053; 81001; 82140; 82550; 83605; 83735; 85007; 85025; 85610; 85652; 85730; 86140; 87040; 87086; 94660; 96360; 96361; 97110; 97163; 99285